=== PATIENT | female | born 1935 | race Caucasian/White ===

== ENCOUNTER 2018-05-15 10:12 | Observation (INO) ==
--- NOTE | 2018-05-15 11:07 | DR.NAUSEAF ---
HPI Time Seen Time Seen by Provider: 05/15/18 10:44 Primary Care Physician Primary Care Physician: JOSE Complaints Chief Complaint:: PATIENT HAS BEEN SICK FOR THE LAST WEEK. SHE WENT TO THE CLINIC FRIDAY AND WAS SEEN FOR THE DIZZINESS. SHE HAS NOT GOTTEN ANY BETTER AND HAS BEEN VOMITING EVERYDAY. FAMILY STATED THAT SHE WAS GIVEN A SHOT AT THE [facility] THAT HELPED OUT FOR ABOUT A DAY. Source History Provided: Patient Mode of Arrival Mode of Arrival: Ambulatory Timing Onset of Chief Complaint: 05/08/18 PMH PMH Past Medical History: Yes Past Medical History: Hypertension Past Surgical History: No Family History History of Family Medical Conditions: No Social History Does patient currently use any type of tobacco product: No Have you used tobacco products in the last 12 months: No Type of Tobacco Use: None Alcohol Use: None and Occasionally Do you use any recreational Drugs:: No Lives With: Family Lives Where: Home infectious screening In the last 2 months have you had wt loss of >10#?: NO Have you had fever, night sweats or hemotysis?: No Have you traveled outside the country in the last 6 months?: No Isolation: Standard PE Vital Signs Vitals: Temperature 97.7 F Pulse Rate 55 Respiratory Rate 20 Blood Pressure 185/81 O2 Sat by Pulse Oximetry 100 ROR Labs Reviewed Result Diagrams: 05/15/18 11:14 05/15/18 11:14 Laboratory: WBC 7.0 X10^3/uL (3.6-10.0) 05/15/18 11:14 RBC 4.80 X10^6/uL (3.5-5.4) 05/15/18 11:14 Hgb 14.4 g/dL (12.0-16.0) 05/15/18 11:14 Hct 42.9 % (36.0-47.0) 05/15/18 11:14 MCV 89.4 fL (80.0-100.0) 05/15/18 11:14 MCH 30.0 pg (27.0-34.0) 05/15/18 11:14 MCHC 33.6 g/dL (33.0-35.0) 05/15/18 11:14 RDW 13.7 % (11.6-16.5) 05/15/18 11:14 Plt Count 184 X10^3/uL (150.0-450.0) 05/15/18 11:14 MPV 9.8 fL (7.4-11.0) 05/15/18 11:14 Neut % (Auto) 74.4 % (42.0-75.0) 05/15/18 11:14 Lymph % (Auto) 15.3 % (21.0-51.0) L 05/15/18 11:14 [place] % (Auto) 8.6 % (0.0-13.0) 05/15/18 11:14 Eos % (Auto) 1.0 % (0.9-2.9) 05/15/18 11:14 Baso % (Auto) 0.7 % (0.2-1.0) 05/15/18 11:14 Neut # (Auto) 5.2 x10^3/uL (2.2-4.8) H 05/15/18 11:14 Lymph # (Auto) 1.1 X10^3/uL (1.3-2.9) L 05/15/18 11:14 [place] # (Auto) 0.6 x10^3/uL (0.3-0.8) 05/15/18 11:14 Eos # (Auto) 0.1 x10^3/uL (0.0-0.2) 05/15/18 11:14 Baso # (Auto) 0.0 X10^3/uL (0.0-0.1) 05/15/18 11:14 Absolute Nucleated RBC 0.0 /100WBC 05/15/18 11:14 Sodium 140 mmol/L (136-145) 05/15/18 11:14 Corrected Sodium TNP 05/15/18 11:14 Potassium 4.0 mmol/L (3.5-5.1) 05/15/18 11:14 Chloride 101 mmol/L (98-107) 05/15/18 11:14 Carbon Dioxide 30.7 mmol/L (21-32) 05/15/18 11:14 BUN 26 mg/dL (7-18) H 05/15/18 11:14 Creatinine 1.50 mg/dL (0.55-1.02) H 05/15/18 11:14 Est GFR (MDRD) Af Amer 43 (>60) L 05/15/18 11:14 Est GFR (MDRD) Non-Af 35 (>60) L 05/15/18 11:14 Glucose 95 mg/dL (65-99) 05/15/18 11:14 Calcium 9.9 mg/dL (8.5-10.1) 05/15/18 11:14 Corrected Calcium TNP 05/15/18 11:14 Total Bilirubin 1.30 mg/dL (0.2-1.0) H 05/15/18 11:14 AST 33 Units/L (15-37) 05/15/18 11:14 ALT 25 Units/L (12-78) 05/15/18 11:14 Alkaline Phosphatase 85 Units/L (46-116) 05/15/18 11:14 Creatine Kinase 31 Units/L (26-192) 05/15/18 11:14 CK-MB (CK-2) < 1.0 ng/mL (0-4.0) 05/15/18 11:14 CK/CKMB % Calc 3.2 % (<4) 05/15/18 11:14 Troponin I < 0.02 ng/mL (0-1.5) 05/15/18 11:14 Total Protein 7.2 g/dL (6.4-8.2) 05/15/18 11:14 Albumin 3.4 g/dL (3.4-5.0) 05/15/18 11:14 Globulin 3.8 g/dL (2.5-4.5) 05/15/18 11:14 Albumin/Globulin Ratio 0.9 Ratio (1.1-2.1) L 05/15/18 11:14 Specimen Type Clean catch urine 05/15/18 11:00 Urine Color Yellow (YELLOW) 05/15/18 11:00 Urine Appearance Clear (CLEAR) 05/15/18 11:00 Urine pH 7.0 (5.0 - 8.0) 05/15/18 11:00 Ur Specific [place] 1.010 (1.000-1.030) 05/15/18 11:00 Urine Protein Negative (NEGATIVE) 05/15/18 11:00 Urine Glucose (UA) Negative (NEGATIVE) 05/15/18 11:00 Urine Ketones Negative (NEGATIVE) 05/15/18 11:00 Urine Occult Blood 1+ (NEGATIVE) 05/15/18 11:00 Urine Nitrite Negative (NEGATIVE) 05/15/18 11:00 Urine Bilirubin Negative (NEGATIVE) 05/15/18 11:00 Urine Urobilinogen Normal (NORMAL) 05/15/18 11:00 Ur Leukocyte Esterase 1+ (NEGATIVE) 05/15/18 11:00
[2018-05-15 11:21] LABS: BASOPHILS % (AUTO) 0.7 % (0.2-1.0); EOSINOPHILS # (AUTO) 0.1 x10^3/uL (0.0-0.2); HEMATOCRIT 42.9 % (36.0-47.0); HEMOGLOBIN 14.4 g/dL (12.0-16.0); LYMPHOCYTES # (AUTO) 1.1 X10^3/uL (1.3-2.9); LYMPHOCYTES % (AUTO) 15.3 % (21.0-51.0); MEAN CORPUSCULAR HGB CONC 33.6 g/dL (33.0-35.0); MEAN CORPUSCULAR VOLUME 89.4 fL (80.0-100.0); MEAN PLATELET VOLUME 9.8 fL (7.4-11.0); MONOCYTES # (AUTO) 0.6 x10^3/uL (0.3-0.8); MONOCYTES % (AUTO) 8.6 % (0.0-13.0); NEUTROPHILS # (AUTO) 5.2 x10^3/uL (2.2-4.8); NEUTROPHILS % (AUTO) 74.4 % (42.0-75.0); PLATELET COUNT 184 X10^3/uL (150.0-450.0); RED CELL DISTRIBUTION WIDTH 13.7 % (11.6-16.5)
--- NOTE | 2018-05-15 11:31 | CT ---
HISTORY: Dizziness, vomiting Study: CT brain without contrast Comparison: 04/30/2018 Technique: Multiple axial images of the brain were obtained without administration of IV contrast. Dose reduction techniques including Automated Exposure Control (AEC) and adjustment of mA and kV were utilized. Findings: There is cerebral volume loss and nonspecific white matter hypoattenuation likely related to chronic microvascular ischemic changes. No evidence of acute hemorrhage, midline shift, mass effect or abnormal extra-axial fluid collection. The ventricular system is symmetric and nondilated. The soft tissues and osseous structures are unremarkable. The visualized paranasal sinuses are clear. IMPRESSION: 1. Stable exam without acute intracranial abnormality. Reported By:
[2018-05-15 11:43] LABS: BILIRUBIN,URINE NEGATIVE (NEGATIVE); BLOOD/HEMOGLOBIN,URINE 1+ (NEGATIVE); GLUCOSE, URINE NEGATIVE (NEGATIVE); KETONES,URINE NEGATIVE (NEGATIVE); LEUKOCYTE ESTERASE ,URINE 1+ (NEGATIVE); NITRITES,URINE NEGATIVE (NEGATIVE); PROTEIN,URINE NEGATIVE (NEGATIVE); UROBILINOGEN,URINE NORMAL (NORMAL)
[2018-05-15 11:46] LABS: BLOOD UREA NITROGEN 26 mg/dL (7-18); CALCIUM 9.9 mg/dL (8.5-10.1); CARBON DIOXIDE 30.7 mmol/L (21-32); CHLORIDE 101 mmol/L (98-107); SODIUM 140 mmol/L (136-145); TROPONIN I < 0.02 ng/mL (0-1.5); eGFR NON BLACK RACES 35 (>60)
[2018-05-15 11:51] LABS: ALANINE AMINOTRANSFERASE 25 Units/L (12-78); ALBUMIN 3.4 g/dL (3.4-5.0); ALKALINE PHOSPHATASE 85 Units/L (46-116); ASPARTATE AMINO TRANSFERASE 33 Units/L (15-37); CKMB % 3.2 % (<4); CREATINE KINASE 31 Units/L (26-192); CREATINE KINASE MB < 1.0 ng/mL (0-4.0); TOTAL PROTEIN 7.2 g/dL (6.4-8.2)
[2018-05-15 11:51] LABS: APPEARANCE,URINE CLEAR (CLEAR); COLOR,URINE YELLOW (YELLOW)
[2018-05-15] MEDS ORDERED: NS 1000 ML 1,000 ML ONE (14:32)
[2018-05-15] MEDS: NS 1000 ML 1,000 ML IV SCH (14:46)
[2018-05-15 17:25] VITALS: BMI 26.3
[2018-05-15 18:17] LABS: CREATINE KINASE 37 Units/L (26-192); CREATINE KINASE MB < 1.0 ng/mL (0-4.0); TROPONIN I < 0.02 ng/mL (0-1.5)
[2018-05-15 18:34] LABS: CKMB % 2.7 % (<4)
[2018-05-16 00:40] LABS: BILIRUBIN,URINE NEGATIVE (NEGATIVE); BLOOD/HEMOGLOBIN,URINE 1+ (NEGATIVE); GLUCOSE, URINE NEGATIVE (NEGATIVE); KETONES,URINE NEGATIVE (NEGATIVE); LEUKOCYTE ESTERASE ,URINE 1+ (NEGATIVE); NITRITES,URINE NEGATIVE (NEGATIVE); PROTEIN,URINE NEGATIVE (NEGATIVE); UROBILINOGEN,URINE NORMAL (NORMAL)
[2018-05-16 00:46] LABS: APPEARANCE,URINE CLEAR (CLEAR); COLOR,URINE YELLOW (YELLOW)
[2018-05-16 00:47] LABS: BACTERIA,URINE 1+ /HPF (NEGATIVE); SQUAMOUS EPITHELIAL CELL,UR FEW /HPF (NEGATIVE)
[2018-05-16 00:53] LABS: CKMB % 3.7 % (<4); CREATINE KINASE 27 Units/L (26-192); CREATINE KINASE MB < 1.0 ng/mL (0-4.0); TROPONIN I < 0.02 ng/mL (0-1.5)
[2018-05-16] MEDS: NS 1000 ML 1,000 ML IV SCH ×3 (04:00→17:36)
[2018-05-16 05:57] LABS: BASOPHILS % (AUTO) 0.6 % (0.2-1.0); EOSINOPHILS # (AUTO) 0.2 x10^3/uL (0.0-0.2); EOSINOPHILS % (AUTO) 3.5 % (0.9-2.9); HEMATOCRIT 39.9 % (36.0-47.0); HEMOGLOBIN 13.3 g/dL (12.0-16.0); LYMPHOCYTES # (AUTO) 2.2 X10^3/uL (1.3-2.9); LYMPHOCYTES % (AUTO) 33.4 % (21.0-51.0); MEAN CORPUSCULAR HEMOGLOBIN 29.9 pg (27.0-34.0); MEAN CORPUSCULAR HGB CONC 33.2 g/dL (33.0-35.0); MEAN CORPUSCULAR VOLUME 89.9 fL (80.0-100.0); MEAN PLATELET VOLUME 9.9 fL (7.4-11.0); MONOCYTES # (AUTO) 0.8 x10^3/uL (0.3-0.8); MONOCYTES % (AUTO) 12.2 % (0.0-13.0); NEUTROPHILS # (AUTO) 3.3 x10^3/uL (2.2-4.8); NEUTROPHILS % (AUTO) 50.3 % (42.0-75.0); PLATELET COUNT 176 X10^3/uL (150.0-450.0); RED BLOOD COUNT 4.44 X10^6/uL (3.5-5.4); RED CELL DISTRIBUTION WIDTH 13.8 % (11.6-16.5); WHITE BLOOD COUNT 6.6 X10^3/uL (3.6-10.0)
[2018-05-16 06:11] LABS: ALANINE AMINOTRANSFERASE 24 Units/L (12-78); ALKALINE PHOSPHATASE 75 Units/L (46-116); ASPARTATE AMINO TRANSFERASE 25 Units/L (15-37); BLOOD UREA NITROGEN 21 mg/dL (7-18); CALCIUM 9.1 mg/dL (8.5-10.1); CARBON DIOXIDE 27.5 mmol/L (21-32); CHLORIDE 106 mmol/L (98-107); COR CA(FOR HYPOALB) 9.9 mg/dL (8.5-10.1); CREATININE 1.37 mg/dL (0.55-1.02); MAGNESIUM 1.8 mg/dL (1.7-2.9); SODIUM 142 mmol/L (136-145); TOTAL PROTEIN 6.3 g/dL (6.4-8.2); eGFR NON BLACK RACES 39 (>60)
[2018-05-16] MEDS ORDERED: ANTIVERT TAB 25 MG PO ONE (06:57)
--- NOTE | 2018-05-16 08:39 | RAD ---
Examination: Chest, PA and lateral views History: Dizzy, dyspnea Findings: Normal heart size with no acute pulmonary, hilar or pleural lesion. Impression: No acute or significant chest abnormality demonstrated. Reported By:
[2018-05-16] MEDS ORDERED: NS 250 ML IV 250 ML IV ONE (09:32)
[2018-05-16 09:42] LABS: AMYLASE 61 Units/L (25-115); LIPASE 400 Units/L (73-393)
[2018-05-16] MEDS: PROTONIX INJ 40 MG VIAL IVP SCH (10:20)
--- NOTE | 2018-05-16 14:35 | DR.H&P ---
H&P - History & Physical for Day of: H&P Date: 05/15/18 - Chief Complaint Chief Complaint: DIZZINESS, NV - History of Present Illness History of Present Illness: 82 WF ER ADMISSION AFTER PRESENTING WITH FAMILY, REPORTS SICK ALL WEEK WITH SEVERE DIZZINESS AND N/V. PT'S FAMILY REPORTS SHE HAS BEEN VERY AND AND INCREASED CONFUSION AND SHE HAD BEEN VOMITING EVERY DAY. PT DENIES DIARRHEA OR BLOOD IN STOOL, DENIES CHEST PAIN BUT HAS MILD COOLEY. PT HAS PMH OF HYPERLIPIDEMIA AND HTN. PT ADMITTED FOR EVALUATION OF ACUTE ILLNESS. - Past Medical History Past Medical History: Hypertension - Past Surgical History Surgical History: Hysterectomy, Other - Family History Family Medical History: Diabetes Mellitus - Social History Does patient currently use any type of tobacco product: No Have you used tobacco products in the last 12 months: No Type of Tobacco Use: None Does any household member use tobacco: No Alcohol Use: None Drug Use: None - Medications Home Medications: No Known Drug Allergies Allergy (Verified 05/15/18 10:13) CONTINUE taking the following medications atorvastatin 10 mg PO QDAY 05/15/18 [History] bisoprolol-hydrochlorothiazide 1 tab PO QDAY 05/15/18 [History] lisinopril 40 mg PO HS 05/15/18 [History] meclizine 1 tab PO Q8H PRN 05/15/18 [History] ondansetron HCl [Zofran] 4 - 8 mg PO TID PRN 05/15/18 [History] - Review of Systems Constitutional: Chills, Weakness Eyes: No Symptoms Reported ENT: No Symptoms Reported Respiratory: SOB with Excertion Cardiovascular: Light Headedness Gastrointestinal: Nausea, Vomiting Genitourinary: No Symptoms Reported Musculoskeletal: No Symptoms Reported Skin: No Symptoms Reported Neurological: Weakness, Confusion, Other (DIZZINESS) - Physical Exam Vital Signs: Temperature 97.8 F Pulse Rate [Right Brachial] 56 Pulse Rate 55 Respiratory Rate 20 Blood Pressure [Right Arm] 182/73 Blood Pressure [Left Arm] 160/93 Blood Pressure 185/81 O2 Sat by Pulse Oximetry 97 Oriented: Person Eyes: Normal Ear: Normal Nose: Normal Throat: Normal Respiratory: RLL Diminished, LLL Diminished Cardiovascular: Normal. negative: Murmur, Edema : Normal Auscultation: Bowel Sounds: Normal Palpation: Normal Tenderness: RUQ, Epigastric, Mild Skin: Decreased Turgur Musculoskeletal: Normal Psychiatric: Anxiety Affect: Anxious Speech Pattern: Clear, Appropriate - Assessment/Plan (1) Dizziness Status: Acute Plan: CT HEAD ON ADMISSION. ADMIT, SERIAL CE AND EKG. BP MONITORING. ADMISSION CBC CMP. GENTLE IV HYDRATION, I & OS (2) Abdominal pain Status: Acute (3) Hypertension Status: Acute (4) Weakness Status: Acute (5) Acute renal insufficiency Status: Acute - Allergies Allergies/Adverse Reactions: Allergies Allergy/AdvReac Type Severity Reaction Status Date / Time No Known Drug Allergies Allergy Verified 05/15/18 10:13
--- NOTE | 2018-05-16 14:39 | PCM.PROG ---
Progress Note - Progress Note for Day of Date of Exam: 05/16/18 - Subjective Subjective: 82 WF ER ADMISSION WITH WEAKNESS, ACUTE RENAL INSUFFICIENCY, N/V AND CONFUSION PER FAMILY. PT HAD CT HEAD ON ADMISSION W/O ACUTE FINDINGS. PT RENAL FUNCTION SLIGHTLY IMPROVED THIS AM. PT CO NAUSEA NO CHEST PAIN. PT HAD ELEVATED LIPASE, ORDERED CTA OF CAROTIDS NOT PREFORMED DUE TO GFR, PER RADIOLOGY. PT HAS CT ABD PELVIS W/O ORDERED AND PROTONIX DAILY, WITH ENCOURAGE ORAL HYDRATION. - Past Medical Family Social History Past Med/Fam/Surg Hx: No changes since H&P Allergies: Allergies No Known Drug Allergies Allergy (Verified 05/15/18 10:13) - Review of Systems ROS: No change since H&P - Vital Signs and I&O's Vital Signs: Temperature 97.8 F Pulse Rate [Right Brachial] 56 Pulse Rate 55 Respiratory Rate 20 Blood Pressure [Right Arm] 182/73 Blood Pressure [Left Arm] 160/93 Blood Pressure 185/81 O2 Sat by Pulse Oximetry 97 Intake and Output: Intake & Output 05/14/18 05/15/18 05/16/18 05/17/18 11:59 11:59 11:59 11:59 Intake Total 1155 / 1155 Balance 1155 / 1155 - Physical Exam Oriented: Person Eyes: Normal Ear: Normal Nose: Normal Throat: Normal Respiratory: Diminished Cardiovascular: Normal. negative: Murmur, Edema : Normal Auscultation: Bowel Sounds: Normal Tenderness: RUQ, Epigastric, Mild Skin: Decreased Turgur Musculoskeletal: Normal Psychiatric: Anxiety Affect: Anxious Speech Pattern: Clear, Appropriate - Laboratory and Diagnostics Result Diagrams: 05/16/18 05:13 05/16/18 05:13 Labs: Laboratory WBC 6.6 X10^3/uL (3.6-10.0) 05/16/18 05:13 RBC 4.44 X10^6/uL (3.5-5.4) 05/16/18 05:13 Hgb 13.3 g/dL (12.0-16.0) 05/16/18 05:13 Hct 39.9 % (36.0-47.0) 05/16/18 05:13 MCV 89.9 fL (80.0-100.0) 05/16/18 05:13 MCH 29.9 pg (27.0-34.0) 05/16/18 05:13 MCHC 33.2 g/dL (33.0-35.0) 05/16/18 05:13 RDW 13.8 % (11.6-16.5) 05/16/18 05:13 Plt Count 176 X10^3/uL (150.0-450.0) 05/16/18 05:13 MPV 9.9 fL (7.4-11.0) 05/16/18 05:13 Neut % (Auto) 50.3 % (42.0-75.0) 05/16/18 05:13 Lymph % (Auto) 33.4 % (21.0-51.0) 05/16/18 05:13 [place] % (Auto) 12.2 % (0.0-13.0) 05/16/18 05:13 Eos % (Auto) 3.5 % (0.9-2.9) H 05/16/18 05:13 Baso % (Auto) 0.6 % (0.2-1.0) 05/16/18 05:13 Neut # (Auto) 3.3 x10^3/uL (2.2-4.8) 05/16/18 05:13 Lymph # (Auto) 2.2 X10^3/uL (1.3-2.9) 05/16/18 05:13 [place] # (Auto) 0.8 x10^3/uL (0.3-0.8) 05/16/18 05:13 Eos # (Auto) 0.2 x10^3/uL (0.0-0.2) 05/16/18 05:13 Baso # (Auto) 0.0 X10^3/uL (0.0-0.1) 05/16/18 05:13 Absolute Nucleated RBC 0.0 /100WBC 05/16/18 05:13 D-Dimer 116 ng/mL (0-400) 05/16/18 05:13 Sodium 142 mmol/L (136-145) 05/16/18 05:13 Corrected Sodium TNP 05/16/18 05:13 Potassium 4.3 mmol/L (3.5-5.1) 05/16/18 05:13 Chloride 106 mmol/L (98-107) 05/16/18 05:13 Carbon Dioxide 27.5 mmol/L (21-32) 05/16/18 05:13 BUN 21 mg/dL (7-18) H 05/16/18 05:13 Creatinine 1.37 mg/dL (0.55-1.02) H 05/16/18 05:13 Est GFR (MDRD) Af Amer 47 (>60) L 05/16/18 05:13 Est GFR (MDRD) Non-Af 39 (>60) L 05/16/18 05:13 Glucose 83 mg/dL (65-99) 05/16/18 05:13 Calcium 9.1 mg/dL (8.5-10.1) 05/16/18 05:13 Corrected Calcium 9.9 mg/dL (8.5-10.1) 05/16/18 05:13 Magnesium 1.8 mg/dL (1.7-2.9) 05/16/18 05:13 Total Bilirubin 0.90 mg/dL (0.2-1.0) 05/16/18 05:13 AST 25 Units/L (15-37) 05/16/18 05:13 ALT 24 Units/L (12-78) 05/16/18 05:13 Alkaline Phosphatase 75 Units/L (46-116) 05/16/18 05:13 Creatine Kinase 27 Units/L (26-192) 05/16/18 00:13 CK-MB (CK-2) < 1.0 ng/mL (0-4.0) 05/16/18 00:13 CK/CKMB % Calc 3.7 % (<4) 05/16/18 00:13 Troponin I < 0.02 ng/mL (0-1.5) 05/16/18 00:13 Total Protein 6.3 g/dL (6.4-8.2) L 05/16/18 05:13 Albumin 3.0 g/dL (3.4-5.0) L 05/16/18 05:13 Globulin 3.3 g/dL (2.5-4.5) 05/16/18 05:13 Albumin/Globulin Ratio 0.9 Ratio (1.1-2.1) L 05/16/18 05:13 Amylase 61 Units/L (25-115) 05/16/18 05:13 Lipase 400 Units/L (73-393) H 05/16/18 05:13 Specimen Type Clean catch urine 05/15/18 23:51 Urine Color Yellow (YELLOW) 05/15/18 23:51 Urine Appearance Clear (CLEAR) 05/15/18 23:51 Urine pH 5.0 (5.0 - 8.0) 05/15/18 23:51 Ur Specific [place] 1.010 (1.000-1.030) 05/15/18 23:51 Urine Protein Negative (NEGATIVE) 05/15/18 23:51 Urine Glucose (UA) Negative (NEGATIVE) 05/15/18 23:51 Urine Ketones Negative (NEGATIVE) 05/15/18 23:51 Urine Occult Blood 1+ (NEGATIVE) 05/15/18 23:51 Urine Nitrite Negative (NEGATIVE) 05/15/18 23:51 Urine Bilirubin Negative (NEGATIVE) 05/15/18 23:51 Urine Urobilinogen Normal (NORMAL) 05/15/18 23:51 Ur Leukocyte Esterase 1+ (NEGATIVE) 05/15/18 23:51 Urine RBC 3-5 /HPF (NONE SEEN) 05/15/18 23:51 Urine WBC 0-2 /HPF (NONE SEEN) 05/15/18 23:51 Ur Squamous Epith Cells Few /HPF (NEGATIVE) 05/15/18 23:51 Urine Bacteria 1+ /HPF (NEGATIVE) 05/15/18 23:51 Ur Culture Indicated? No/not indicated 05/15/18 23:51 - Plan (1) Dizziness Status: Acute Plan: CT HEAD ON ADMISSION. CTA CAROTIDS, BP AND LIPID CONTROL. SERIAL CE AND EKG REVIEWED WITH PT AND SISTER PRESENT THIS AM. BP MONITORING. AM CBC CMP, REPEAT AMYLASE AND LIPASE. GENTLE IV HYDRATION, I & OS (2) Abdominal pain Status: Acute Plan: REPEAT AMYLASE AND LIPASE. CT ABD PELVIS (3) Hypertension Status: Acute (4) Weakness Status: Acute (5) Acute renal insufficiency Status: Acute
--- NOTE | 2018-05-16 15:57 | CT ---
HISTORY: Abdominal pain, nausea, vomiting Study: CT abdomen and pelvis without contrast Comparison: None Technique: Multiple axial images of the abdomen and pelvis were obtained from the lung bases to the pubic symphysis without the administration of IV contrast. Findings: Subsegmental atelectasis and/or scarring are seen within the visualized lungs. Calcifications are seen within the periphery of the inferior right hepatic lobe. The spleen, pancreas, adrenals, and left kidney are grossly unremarkable in appearance given the limitations of this noncontrast exam. A right renal cyst is noted. No CT evidence of hydronephrosis is identified. Evaluation of the stomach, small bowel, and colon is limited without oral contrast. A moderate-size hiatal hernia is noted. The urinary bladder is unremarkable. Degenerative changes are seen within the visualized spine. IMPRESSION: Moderate-sized hiatal hernia. Right renal cyst. Other findings as noted above. Reported By:
[2018-05-16] MEDS ORDERED: COZAAR ONE (16:14)
[2018-05-16] MEDS: COZAAR PO SCH (16:16)
[2018-05-16] MEDS ORDERED: COLACE CAP 100 MG PO SCH (21:00)
[2018-05-17] MEDS ORDERED: RESTORIL CAP 15 MG PO PRN (00:46)
[2018-05-17] MEDS ORDERED: RESTORIL CAP 15 MG PO ONE (00:49)
[2018-05-17] MEDS: NS 1000 ML 1,000 ML IV SCH (05:03)
[2018-05-17 05:17] LABS: BASOPHILS % (AUTO) 0.7 % (0.2-1.0); EOSINOPHILS # (AUTO) 0.2 x10^3/uL (0.0-0.2); EOSINOPHILS % (AUTO) 4.1 % (0.9-2.9); HEMATOCRIT 36.2 % (36.0-47.0); HEMOGLOBIN 11.9 g/dL (12.0-16.0); LYMPHOCYTES % (AUTO) 33.5 % (21.0-51.0); MEAN CORPUSCULAR HEMOGLOBIN 29.7 pg (27.0-34.0); MEAN CORPUSCULAR HGB CONC 32.9 g/dL (33.0-35.0); MEAN CORPUSCULAR VOLUME 90.4 fL (80.0-100.0); MEAN PLATELET VOLUME 9.9 fL (7.4-11.0); MONOCYTES # (AUTO) 0.7 x10^3/uL (0.3-0.8); NEUTROPHILS # (AUTO) 2.9 x10^3/uL (2.2-4.8); NEUTROPHILS % (AUTO) 49.7 % (42.0-75.0); PLATELET COUNT 154 X10^3/uL (150.0-450.0); RED BLOOD COUNT 4.01 X10^6/uL (3.5-5.4); WHITE BLOOD COUNT 5.8 X10^3/uL (3.6-10.0)
[2018-05-17 05:25] LABS: ALANINE AMINOTRANSFERASE 19 Units/L (12-78); ALBUMIN 2.7 g/dL (3.4-5.0); ALKALINE PHOSPHATASE 69 Units/L (46-116); ASPARTATE AMINO TRANSFERASE 23 Units/L (15-37); BLOOD UREA NITROGEN 15 mg/dL (7-18); CALCIUM 8.8 mg/dL (8.5-10.1); CARBON DIOXIDE 24.8 mmol/L (21-32); CHLORIDE 108 mmol/L (98-107); COR CA(FOR HYPOALB) 9.8 mg/dL (8.5-10.1); CREATININE 1.18 mg/dL (0.55-1.02); SODIUM 142 mmol/L (136-145); TOTAL PROTEIN 5.7 g/dL (6.4-8.2); eGFR NON BLACK RACES 46 (>60)
[2018-05-17 06:14] LABS: AMYLASE 53 Units/L (25-115); LIPASE 318 Units/L (73-393)
[2018-05-17] MEDS: COZAAR PO SCH (09:46)
[2018-05-17] MEDS: PROTONIX INJ 40 MG VIAL IVP SCH (09:46)
[2018-05-17 12:23] VITALS: BP 173/75
[2018-05-17] MEDS ORDERED: NORVASC TAB 5 MG PO ONE (13:59)
== END 2018-05-17 15:05 | disposition home or self-care (01) ==
LOC: MED/SURG 10:12 → ER 10:12 → MED/SURG 14:26
PROVIDERS: ADMIT Internal Medicine; ATTEND Internal Medicine
DX: R53.1 Weakness; R42 Dizziness and giddiness; K21.9 Gastro-esophageal reflux disease without esophagitis; I10 Essential (primary) hypertension; K44.9 Diaphragmatic hernia without obstruction or gangrene; F01.50 Vascular dementia, unspecified severity, without behavioral disturbance, psychotic disturbance, mood disturbance, and anxiety; N28.9 Disorder of kidney and ureter, unspecified; E78.2 Mixed hyperlipidemia; Z79.899 Other long term (current) drug therapy; R94.4 Abnormal results of kidney function studies; E86.0 Dehydration; N28.1 Cyst of kidney, acquired; R11.2 Nausea with vomiting, unspecified
CPT/HCPCS: 36415; 70450; 71020; 71046; 74176; 80053; 81001; 81003; 82150; 82550; 82553; 83690; 83735; 84484; 85025; 85378; 93005; 94760; 96365; 96367; 96374; 99282; 99284; A4222; C9113; G0378; J7030; J7050

== ENCOUNTER 2022-04-13 14:13 | Observation (INO) ==
[2022-04-13] MEDS ORDERED: ROCEPHIN 1 GRAM IV PREMIX 1 G/50 ML IV.SOLN. IV SCH (15:00)
[2022-04-13 15:49] VITALS: BMI 22.6
[2022-04-13] MEDS: NS 1,000 ML IV 1,000 ML IV SCH (16:01)
[2022-04-13] MEDS: ZESTRIL TAB 10 MG PO SCH (16:02)
--- NOTE | 2022-04-13 16:05 | RAD ---
EXAM: CHEST X-RAYHISTORY: Fall injury. Weakness.TECHNIQUE: AP CXR.COMPARISON: None available.FINDINGS:The heart size and mediastinum are within normal limits. The lung dominguez and costophrenic angles are clear. There is no acute parenchymal infiltrate, pleural effusion, or pneumothorax seen. The visualized bony structures are within normal limits.IMPRESSION:1. No evidence for acute cardiopulmonary disease seen.Electronically signed by: Kinga Brown (Apr 13, 2022 16:03:55)
[2022-04-13] MEDS ORDERED: ROCEPHIN VIAL 1 GRAM IV SCH (16:15)
[2022-04-13] MEDS: ROCEPHIN VIAL 1 GRAM 1 G in NS 100 ML IV 100 ML IV SCH (17:11)
[2022-04-13] MEDS ORDERED: TAPAZOLE ONE (20:03)
[2022-04-13] MEDS: TAPAZOLE PO SCH (20:52)
[2022-04-13] MEDS: MELATONIN PO PRN (20:52)
[2022-04-13] MEDS ORDERED: SEROquel TAB 25 mg PO SCH (21:00)
[2022-04-14 06:10] LABS: BASOPHILS % (AUTO) 0.5 % (0.2-1.0); EOSINOPHILS # (AUTO) 0.2 x10^3/uL (0.0-0.2); EOSINOPHILS % (AUTO) 2.7 % (0.9-2.9); HEMATOCRIT 38.2 % (36.0-47.0); HEMOGLOBIN 12.9 g/dL (12.0-16.0); LYMPHOCYTES # (AUTO) 1.4 X10^3/uL (1.3-2.9); LYMPHOCYTES % (AUTO) 24.4 % (21.0-51.0); MEAN CORPUSCULAR HEMOGLOBIN 29.9 pg (27.0-34.0); MEAN CORPUSCULAR HGB CONC 33.8 g/dL (33.0-35.0); MEAN CORPUSCULAR VOLUME 88.3 fL (80.0-100.0); MEAN PLATELET VOLUME 8.8 fL (7.4-11.0); MONOCYTES # (AUTO) 0.7 x10^3/uL (0.3-0.8); NEUTROPHILS # (AUTO) 3.4 x10^3/uL (2.2-4.8); NEUTROPHILS % (AUTO) 60.4 % (42.0-75.0); RED BLOOD COUNT 4.33 X10^6/uL (3.5-5.4); RED CELL DISTRIBUTION WIDTH 13.7 % (11.6-16.5); WHITE BLOOD COUNT 5.6 X10^3/uL (3.6-10.0)
[2022-04-14 07:05] LABS: ALANINE AMINOTRANSFERASE 10 Units/L (12-78); ALBUMIN 2.7 g/dL (3.4-5.0); ALKALINE PHOSPHATASE 101 Units/L (46-116); ASPARTATE AMINO TRANSFERASE 24 Units/L (15-37); BLOOD UREA NITROGEN 10 mg/dL (7-18); CALCIUM 8.5 mg/dL (8.5-10.1); CARBON DIOXIDE 30.3 mmol/L (21-32); CHLORIDE 104 mmol/L (98-107); COR CA(FOR HYPOALB) 9.5 mg/dL (8.5-10.1); CREATININE 1.15 mg/dL (0.55-1.02); SODIUM 141 mmol/L (136-145); eGFR NON BLACK RACES 47 (>60)
[2022-04-14] MEDS: CYMBALTA PO SCH (08:15)
[2022-04-14] MEDS: ZESTRIL TAB 10 MG PO SCH (08:15)
[2022-04-14] MEDS: ROCEPHIN VIAL 1 GRAM 1 G in NS 100 ML IV 100 ML IV SCH (08:15)
[2022-04-14] MEDS: SEROquel TAB 25 mg PO SCH ×2 (09:29→21:05)
[2022-04-14] MEDS: NS 1,000 ML IV 1,000 ML IV SCH (18:30)
[2022-04-14] MEDS ORDERED: TAPAZOLE ONE (20:01)
[2022-04-14] MEDS: TAPAZOLE PO SCH (21:04)
[2022-04-14] MEDS: MELATONIN PO PRN (21:04)
[2022-04-15 05:20] LABS: BASOPHILS % (AUTO) 0.5 % (0.2-1.0); EOSINOPHILS # (AUTO) 0.2 x10^3/uL (0.0-0.2); EOSINOPHILS % (AUTO) 3.7 % (0.9-2.9); HEMATOCRIT 40.5 % (36.0-47.0); HEMOGLOBIN 13.4 g/dL (12.0-16.0); LYMPHOCYTES # (AUTO) 1.4 X10^3/uL (1.3-2.9); MEAN CORPUSCULAR HEMOGLOBIN 29.6 pg (27.0-34.0); MEAN CORPUSCULAR HGB CONC 33.2 g/dL (33.0-35.0); MEAN CORPUSCULAR VOLUME 89.2 fL (80.0-100.0); MEAN PLATELET VOLUME 9.2 fL (7.4-11.0); MONOCYTES # (AUTO) 0.6 x10^3/uL (0.3-0.8); MONOCYTES % (AUTO) 10.9 % (0.0-13.0); NEUTROPHILS # (AUTO) 3.4 x10^3/uL (2.2-4.8); NEUTROPHILS % (AUTO) 59.9 % (42.0-75.0); RED BLOOD COUNT 4.54 X10^6/uL (3.5-5.4); RED CELL DISTRIBUTION WIDTH 13.8 % (11.6-16.5); WHITE BLOOD COUNT 5.7 X10^3/uL (3.6-10.0)
[2022-04-15 05:36] LABS: ALANINE AMINOTRANSFERASE 10 Units/L (12-78); ALKALINE PHOSPHATASE 104 Units/L (46-116); ASPARTATE AMINO TRANSFERASE 23 Units/L (15-37); BLOOD UREA NITROGEN 12 mg/dL (7-18); CALCIUM 8.7 mg/dL (8.5-10.1); CARBON DIOXIDE 29.1 mmol/L (21-32); CHLORIDE 104 mmol/L (98-107); COR CA(FOR HYPOALB) 9.5 mg/dL (8.5-10.1); CREATININE 1.22 mg/dL (0.55-1.02); SODIUM 142 mmol/L (136-145); TOTAL PROTEIN 6.5 g/dL (6.4-8.2); eGFR NON BLACK RACES 44 (>60)
[2022-04-15] MEDS: SEROquel TAB 25 mg PO SCH ×3 (07:56→20:50)
[2022-04-15] MEDS: CYMBALTA PO SCH ×2 (07:56→11:46)
[2022-04-15] MEDS: ZESTRIL TAB 10 MG PO SCH ×3 (07:57→18:00)
[2022-04-15] MEDS: ROCEPHIN VIAL 1 GRAM 1 G in NS 100 ML IV 100 ML IV SCH ×2 (07:57→11:45)
[2022-04-15] MEDS: LOVENOX INJ 40 MG SYR SC SCH (11:48)
--- NOTE | 2022-04-15 13:20 | DR.H&P ---
H&P - History & Physical for Day of: H&P Date: 04/13/22 - Chief Complaint Chief Complaint: fall, weakness, confusion - History of Present Illness History of Present Illness: PT IS 86 WF, ER ADMISSION AFTER PRESENTING WITH FAMILY REPORTS PT HAD FALL EARLY THIS AM. PTS FAMILY REPORTS PT HAS HAD MULTIPLE FALLS RECENTLY WITH INCREASED WEAKNESS AND CONFUSION. PT HAS HAD OVER 10LB WEIGHT LOSS IN THE PAST 3 MONTHS. PT HAS PMH OF HYPERTENSION, THYROID DISEASE AND DEMENTIA WITHOUT PREVIOUS BEHAVIOR DISTURBANCE. PT ADMITTED FOR TREATMENT AND EVALUATION OF ACUTE ILLNESS, WITH PLANS TO SEEK [employer] COMPLIANCE MANAGER SKILLED NURSING PLACEMENT. - Past Medical History Past Medical History: Arthritis, Dementia, Hypertension, Hyperthyroidism - Past Surgical History Surgical History: Hysterectomy - Family History Family Medical History: Diabetes Mellitus, Hypertension - Social History Does patient currently use any type of tobacco product: No Have you used tobacco products in the last 12 months: No Type of Tobacco Use: None Does any household member use tobacco: No Alcohol Use: None Drug Use: None - Medications Home Medications: No Known Drug Allergies Allergy (Verified 05/15/18 10:13) CONTINUE taking the following medications melatonin 5 mg tablet 5 mg PO HS PRN 04/13/22 [History] potassium chloride 20 mEq tablet,extended release(part/cryst) 40 meq PO WEEKLY 04/13/22 [History] - Review of Systems Constitutional: Weakness Eyes: No Symptoms Reported ENT: No Symptoms Reported Respiratory: No Symptoms Reported Cardiovascular: No Symptoms Reported Gastrointestinal: Other (POOR APPETITE, WEIGHT LOSS) Genitourinary: Incontinence Musculoskeletal: No Symptoms Reported Skin: Wound (RIGHT FOREARM) Neurological: Weakness, Confusion - Physical Exam Vital Signs: Temperature 97.2 F Pulse Rate [Right Radial] 82 Respiratory Rate 18 Blood Pressure [Right Arm] 178/78 Blood Pressure [Left Arm] 160/93 Blood Pressure 193/93 O2 Sat by Pulse Oximetry 94 Oriented: Person Eyes: Normal Ear: Normal Nose: Normal Throat: Normal Respiratory: RLL Diminished, LLL Diminished Cardiovascular: Normal. negative: Edema : Normal Auscultation: Bowel Sounds: Normal Palpation: Normal Tenderness: Normal Skin: Decreased Turgur, Wound Musculoskeletal: Right, Left, Motor Deficit Psychiatric: Anxiety, Agitation Mood Description: Anxious Affect: Anxious Speech Pattern: Clear, Inappropriate - Assessment/Plan (1) Altered mental status Status: Acute Plan: ADMIT, UA AND UC COLLECTED ON ER ADMISSION. CT HEAD NEGATIVE FOR ACUTE CVA, OBTAINED ON ER ADMISSION. CONTINUE GENTLE IV HYDRATION, WOUND CARE. FALL RISK, PT EVALUATION. (2) Muscle weakness Status: Acute (3) Urinary tract infection Status: Acute (4) Contusion of forearm, right Status: Acute (5) Hypertension Status: Acute - Allergies Allergies/Adverse Reactions: Allergies Allergy/AdvReac Type Severity Reaction Status Date / Time No Known Drug Allergies Allergy Verified 05/15/18 10:13
--- NOTE | 2022-04-15 17:35 | PCM.PROG ---
Progress Note - Progress Note for Day of Date of Exam: 04/15/22 - Subjective Subjective: PT IS 86 WF, ADMITTED WITH ALTERED MENTAL STATUS AND WEAKNESS. PT HAD NEGATIVE CT HEAD ON ADMISSION. PT HAS PMH OF HYPERTENSION WITH HYPERTENSIVE URGENT BP READINGS TODAY. WE INCREASED HER PO LISINOPRIL AND ADDED PRN CATAPRES .1 PO FOR BP GREATER THAN 160/90. PT HAS HAD SOME AGITATION, CONTROLLED WITH SEROQUEL. URINE CULTURE PENDING. PT IS CURRENTLY ON ROCEPHIN 1GM IV DAILY. PT HAS OVERALL POOR PO INTAKE. CASE MANAGEMENT HAS BEEN CONSULTED FOR NH PLACEMENT. FAMILY AT BEDSIDE THIS MORNING AND AGREES WITH PLAN OF CARE. - Past Medical Family Social History Past Med/Fam/Surg Hx: No changes since H&P Allergies: Allergies No Known Drug Allergies Allergy (Verified 05/15/18 10:13) - Review of Systems ROS: No change since H&P - Vital Signs and I&O's Vital Signs: Temperature 98.2 F Pulse Rate [Right Radial] 74 Respiratory Rate 20 Blood Pressure [Right Arm] 196/81 Blood Pressure [Left Arm] 160/93 Blood Pressure 193/93 O2 Sat by Pulse Oximetry 98 Intake and Output: Intake & Output 04/13/22 04/14/22 04/15/22 04/16/22 11:59 11:59 11:59 11:59 Intake Total 468 / 468 1421 / 1421 40 / 40 Output Total 750 / 750 Balance 468 / 468 671 / 671 40 / 40 - Physical Exam Oriented: Person Eyes: Normal Ear: Normal Nose: Normal Throat: Normal Respiratory: Diminished Cardiovascular: Normal. negative: Edema : Normal Auscultation: Bowel Sounds: Normal Tenderness: Normal Skin: Decreased Turgur, Wound Musculoskeletal: Right, Left, Motor Deficit Psychiatric: Anxiety, Agitation Mood Description: Anxious Affect: Anxious Speech Pattern: Clear, Inappropriate - Laboratory and Diagnostics Result Diagrams: 04/15/22 04:50 04/15/22 04:50 Labs: Laboratory WBC 5.7 X10^3/uL (3.6-10.0) 04/15/22 04:50 RBC 4.54 X10^6/uL (3.5-5.4) 04/15/22 04:50 Hgb 13.4 g/dL (12.0-16.0) 04/15/22 04:50 Hct 40.5 % (36.0-47.0) 04/15/22 04:50 MCV 89.2 fL (80.0-100.0) 04/15/22 04:50 MCH 29.6 pg (27.0-34.0) 04/15/22 04:50 MCHC 33.2 g/dL (33.0-35.0) 04/15/22 04:50 RDW 13.8 % (11.6-16.5) 04/15/22 04:50 Plt Count 243 X10^3/uL (150.0-450.0) 04/15/22 04:50 MPV 9.2 fL (7.4-11.0) 04/15/22 04:50 Neut % (Auto) 59.9 % (42.0-75.0) 04/15/22 04:50 Lymph % (Auto) 25.0 % (21.0-51.0) 04/15/22 04:50 [place] % (Auto) 10.9 % (0.0-13.0) 04/15/22 04:50 Eos % (Auto) 3.7 % (0.9-2.9) H 04/15/22 04:50 Baso % (Auto) 0.5 % (0.2-1.0) 04/15/22 04:50 Neut # (Auto) 3.4 x10^3/uL (2.2-4.8) 04/15/22 04:50 Lymph # (Auto) 1.4 X10^3/uL (1.3-2.9) 04/15/22 04:50 [place] # (Auto) 0.6 x10^3/uL (0.3-0.8) 04/15/22 04:50 Eos # (Auto) 0.2 x10^3/uL (0.0-0.2) 04/15/22 04:50 Baso # (Auto) 0.0 X10^3/uL (0.0-0.1) 04/15/22 04:50 Absolute Nucleated RBC 0.1 /100WBC 04/15/22 04:50 Sodium 142 mmol/L (136-145) 04/15/22 04:50 Corrected Sodium TNP 04/15/22 04:50 Potassium 3.5 mmol/L (3.5-5.1) 04/15/22 04:50 Chloride 104 mmol/L (98-107) 04/15/22 04:50 Carbon Dioxide 29.1 mmol/L (21-32) 04/15/22 04:50 BUN 12 mg/dL (7-18) 04/15/22 04:50 Creatinine 1.22 mg/dL (0.55-1.02) H 04/15/22 04:50 Est GFR (MDRD) Af Amer 54 (>60) L 04/15/22 04:50 Est GFR (MDRD) Non-Af 44 (>60) L 04/15/22 04:50 Glucose 81 mg/dL (65-99) 04/15/22 04:50 Calcium 8.7 mg/dL (8.5-10.1) 04/15/22 04:50 Corrected Calcium 9.5 mg/dL (8.5-10.1) 04/15/22 04:50 Total Bilirubin 0.50 mg/dL (0.2-1.0) 04/15/22 04:50 AST 23 Units/L (15-37) 04/15/22 04:50 ALT 10 Units/L (12-78) L 04/15/22 04:50 Alkaline Phosphatase 104 Units/L (46-116) 04/15/22 04:50 Total Protein 6.5 g/dL (6.4-8.2) 04/15/22 04:50 Albumin 3.0 g/dL (3.4-5.0) L 04/15/22 04:50 Globulin 3.5 g/dL (2.5-4.5) 04/15/22 04:50 Albumin/Globulin Ratio 0.9 Ratio (1.1-2.1) L 04/15/22 04:50 - Plan (1) Altered mental status Status: Acute Plan: UA AND UC COLLECTED ON ER ADMISSION. CT HEAD NEGATIVE FOR ACUTE CVA, OBTAINED ON ER ADMISSION. CONTINUE GENTLE IV HYDRATION, WOUND CARE. FALL RISK, PT EVALUATION. (2) Muscle weakness Status: Acute (3) Urinary tract infection Status: Acute (4) Contusion of forearm, right Status: Acute (5) Hypertension Status: Acute
[2022-04-15] MEDS ORDERED: TAPAZOLE ONE (20:29)
[2022-04-15] MEDS: MELATONIN PO PRN (20:49)
[2022-04-15] MEDS: CATAPRES TAB 0.1 MG PO PRN (20:49)
[2022-04-15] MEDS: TAPAZOLE PO SCH (20:50)
[2022-04-15] MEDS: NS 1,000 ML IV 1,000 ML IV SCH (20:50)
[2022-04-16] MEDS ORDERED: K-DUR TAB 20 MEQ PO PRN (00:50)
[2022-04-16] MEDS ORDERED: MICRO K EXTEN CAP 10 MEQ PO PRN (00:50)
[2022-04-16] MEDS ORDERED: POTASSIUM CHL 60 MEQ/NS 0.45% 500 ML IV PRN (00:50)
[2022-04-16] MEDS ORDERED: KLOR-CON PO PRN (00:50)
[2022-04-16] MEDS ORDERED: POTASSIUM CHLORIDE LIQ 20 MEQ UDC PO PRN (00:50)
[2022-04-16] MEDS ORDERED: K-RIDER 10 MEQ/NS 100 ML 10 MEQ/100 ML BAG IV PRN (00:50)
[2022-04-16] MEDS ORDERED: POTASSIUM CHL 40 MEQ/NS 0.45% 500 ML IV PRN (00:50)
[2022-04-16 06:20] LABS: BASOPHILS % (AUTO) 0.6 % (0.2-1.0); EOSINOPHILS # (AUTO) 0.2 x10^3/uL (0.0-0.2); EOSINOPHILS % (AUTO) 3.7 % (0.9-2.9); HEMATOCRIT 39.2 % (36.0-47.0); HEMOGLOBIN 12.7 g/dL (12.0-16.0); LYMPHOCYTES # (AUTO) 1.7 X10^3/uL (1.3-2.9); LYMPHOCYTES % (AUTO) 28.7 % (21.0-51.0); MEAN CORPUSCULAR HEMOGLOBIN 29.3 pg (27.0-34.0); MEAN CORPUSCULAR HGB CONC 32.3 g/dL (33.0-35.0); MEAN CORPUSCULAR VOLUME 90.7 fL (80.0-100.0); MEAN PLATELET VOLUME 9.2 fL (7.4-11.0); MONOCYTES # (AUTO) 0.7 x10^3/uL (0.3-0.8); MONOCYTES % (AUTO) 11.2 % (0.0-13.0); NEUTROPHILS # (AUTO) 3.3 x10^3/uL (2.2-4.8); NEUTROPHILS % (AUTO) 55.8 % (42.0-75.0); RED BLOOD COUNT 4.32 X10^6/uL (3.5-5.4); RED CELL DISTRIBUTION WIDTH 14.1 % (11.6-16.5)
[2022-04-16 06:32] LABS: ALANINE AMINOTRANSFERASE 11 Units/L (12-78); ALBUMIN 2.7 g/dL (3.4-5.0); ALKALINE PHOSPHATASE 100 Units/L (46-116); ASPARTATE AMINO TRANSFERASE 24 Units/L (15-37); BLOOD UREA NITROGEN 10 mg/dL (7-18); CALCIUM 8.4 mg/dL (8.5-10.1); CARBON DIOXIDE 28.6 mmol/L (21-32); CHLORIDE 105 mmol/L (98-107); COR CA(FOR HYPOALB) 9.4 mg/dL (8.5-10.1); CREATININE 1.15 mg/dL (0.55-1.02); SODIUM 140 mmol/L (136-145); TOTAL PROTEIN 6.1 g/dL (6.4-8.2); eGFR NON BLACK RACES 47 (>60)
[2022-04-16] MEDS: MAGNESIUM SULFATE 1 GRAM/100 mL PREMIX 1 G/100 ML BAG IV PRN ×2 (06:54→09:54)
[2022-04-16] MEDS: ROCEPHIN VIAL 1 GRAM 1 G in NS 100 ML IV 100 ML IV SCH (08:47)
[2022-04-16] MEDS: LOVENOX INJ 40 MG SYR SC SCH (08:48)
[2022-04-16] MEDS: SEROquel TAB 25 mg PO SCH ×2 (08:50→20:06)
[2022-04-16] MEDS: ZESTRIL TAB 10 MG PO SCH (08:50)
[2022-04-16] MEDS: CYMBALTA PO SCH (08:50)
[2022-04-16] MEDS: NS 1,000 ML IV 1,000 ML IV SCH (15:57)
--- NOTE | 2022-04-16 18:18 | PCM.PROG ---
Progress Note - Progress Note for Day of Date of Exam: 04/16/22 - Subjective Subjective: PT IS 86 WF, ADMITTED WITH ALTERED MENTAL STATUS AND WEAKNESS. PT HAD NEGATIVE CT HEAD ON ADMISSION. PT HAS PMH OF HYPERTENSION WITH HYPERTENSIVE URGENT BP READINGS. WE INCREASED HER PO LISINOPRIL AND ADDED PRN CATAPRES .1 PO FOR BP GREATER THAN 160/90. PT HAS HAD SOME AGITATION, CONTROLLED WITH SEROQUEL. URINE CULTURE PENDING. PT IS CURRENTLY ON ROCEPHIN 1GM IV DAILY. PT HAS OVERALL POOR PO INTAKE. CASE MANAGEMENT HAS BEEN CONSULTED FOR NH PLACEMENT. FAMILY AT BEDSIDE THIS MORNING AND AGREES WITH PLAN OF CARE. - Past Medical Family Social History Past Med/Fam/Surg Hx: No changes since H&P Allergies: Allergies No Known Drug Allergies Allergy (Verified 05/15/18 10:13) - Review of Systems ROS: No change since H&P - Vital Signs and I&O's Vital Signs: Temperature 98.0 F Pulse Rate [Right Radial] 64 Respiratory Rate 18 Blood Pressure [Right Arm] 213/98 Blood Pressure [Left Arm] 139/68 Blood Pressure 193/93 O2 Sat by Pulse Oximetry 97 Intake and Output: Intake & Output 04/14/22 04/15/22 04/16/22 04/17/22 11:59 11:59 11:59 11:59 Intake Total 468 / 468 1421 / 1421 758 / 758 240 / 240 Output Total 750 / 750 Balance 468 / 468 671 / 671 758 / 758 240 / 240 - Physical Exam Oriented: Person Eyes: Normal Ear: Normal Nose: Normal Throat: Normal Respiratory: Diminished Cardiovascular: Normal. negative: Edema : Normal Auscultation: Bowel Sounds: Normal Tenderness: Normal Skin: Decreased Turgur, Wound Musculoskeletal: Right, Left, Motor Deficit Psychiatric: Anxiety, Agitation Mood Description: Anxious Affect: Anxious Speech Pattern: Clear, Appropriate - Laboratory and Diagnostics Result Diagrams: 04/16/22 05:58 04/16/22 05:58 Labs: Laboratory WBC 6.0 X10^3/uL (3.6-10.0) 04/16/22 05:58 RBC 4.32 X10^6/uL (3.5-5.4) 04/16/22 05:58 Hgb 12.7 g/dL (12.0-16.0) 04/16/22 05:58 Hct 39.2 % (36.0-47.0) 04/16/22 05:58 MCV 90.7 fL (80.0-100.0) 04/16/22 05:58 MCH 29.3 pg (27.0-34.0) 04/16/22 05:58 MCHC 32.3 g/dL (33.0-35.0) L 04/16/22 05:58 RDW 14.1 % (11.6-16.5) 04/16/22 05:58 Plt Count 221 X10^3/uL (150.0-450.0) 04/16/22 05:58 MPV 9.2 fL (7.4-11.0) 04/16/22 05:58 Neut % (Auto) 55.8 % (42.0-75.0) 04/16/22 05:58 Lymph % (Auto) 28.7 % (21.0-51.0) 04/16/22 05:58 [place] % (Auto) 11.2 % (0.0-13.0) 04/16/22 05:58 Eos % (Auto) 3.7 % (0.9-2.9) H 04/16/22 05:58 Baso % (Auto) 0.6 % (0.2-1.0) 04/16/22 05:58 Neut # (Auto) 3.3 x10^3/uL (2.2-4.8) 04/16/22 05:58 Lymph # (Auto) 1.7 X10^3/uL (1.3-2.9) 04/16/22 05:58 [place] # (Auto) 0.7 x10^3/uL (0.3-0.8) 04/16/22 05:58 Eos # (Auto) 0.2 x10^3/uL (0.0-0.2) 04/16/22 05:58 Baso # (Auto) 0.0 X10^3/uL (0.0-0.1) 04/16/22 05:58 Absolute Nucleated RBC 0.1 /100WBC 04/16/22 05:58 Sodium 140 mmol/L (136-145) 04/16/22 05:58 Corrected Sodium TNP 04/16/22 05:58 Potassium 3.7 mmol/L (3.5-5.1) 04/16/22 05:58 Chloride 105 mmol/L (98-107) 04/16/22 05:58 Carbon Dioxide 28.6 mmol/L (21-32) 04/16/22 05:58 BUN 10 mg/dL (7-18) 04/16/22 05:58 Creatinine 1.15 mg/dL (0.55-1.02) H 04/16/22 05:58 Est GFR (MDRD) Af Amer 57 (>60) L 04/16/22 05:58 Est GFR (MDRD) Non-Af 47 (>60) L 04/16/22 05:58 Glucose 79 mg/dL (65-99) 04/16/22 05:58 Calcium 8.4 mg/dL (8.5-10.1) L 04/16/22 05:58 Corrected Calcium 9.4 mg/dL (8.5-10.1) 04/16/22 05:58 Magnesium 1.7 mg/dL (2.0-2.9) L 04/16/22 05:58 Total Bilirubin 0.40 mg/dL (0.2-1.0) 04/16/22 05:58 AST 24 Units/L (15-37) 04/16/22 05:58 ALT 11 Units/L (12-78) L 04/16/22 05:58 Alkaline Phosphatase 100 Units/L (46-116) 04/16/22 05:58 Total Protein 6.1 g/dL (6.4-8.2) L 04/16/22 05:58 Albumin 2.7 g/dL (3.4-5.0) L 04/16/22 05:58 Globulin 3.4 g/dL (2.5-4.5) 04/16/22 05:58 Albumin/Globulin Ratio 0.8 Ratio (1.1-2.1) L 04/16/22 05:58 - Plan (1) Altered mental status Status: Acute Plan: UA AND UC COLLECTED ON ER ADMISSION. CT HEAD NEGATIVE FOR ACUTE CVA, OBTAINED ON ER ADMISSION. CONTINUE GENTLE IV HYDRATION, WOUND CARE. FALL RISK, PT EVALUATION. (2) Muscle weakness Status: Acute (3) Urinary tract infection Status: Acute (4) Contusion of forearm, right Status: Acute (5) Hypertension Status: Acute
[2022-04-16] MEDS ORDERED: TAPAZOLE ONE (19:55)
[2022-04-16] MEDS: TAPAZOLE PO SCH (20:05)
[2022-04-16] MEDS: MELATONIN PO PRN (20:05)
[2022-04-16] MEDS: CATAPRES TAB 0.1 MG PO PRN (20:07)
[2022-04-16] MEDS ORDERED: APRESOLINE INJ 20 MG VIAL IVP ONE (23:28)
--- NOTE | 2022-04-16 23:45 | EKG ---
Test Reason : hypertension Blood Pressure : */* mmHG Vent. Rate : 55 BPM Atrial Rate : 55 BPM P-R Int : 214 ms QRS Dur : 72 ms QT Int : 436 ms P-R-T Axes : 38 42 71 degrees QTc Int : 417 ms Sinus bradycardia with 1st degree AV block Low voltage QRS Borderline ECG No previous ECGs available Confirmed by Sergio Hunt ([id number]) on 04/18/2022 8:01:43 AM Referred By: Confirmed By: Sergio Hunt
[2022-04-17 05:20] LABS: BASOPHILS # (AUTO) 0.1 X10^3/uL (0.0-0.1); BASOPHILS % (AUTO) 0.8 % (0.2-1.0); EOSINOPHILS # (AUTO) 0.2 x10^3/uL (0.0-0.2); EOSINOPHILS % (AUTO) 2.8 % (0.9-2.9); HEMATOCRIT 41.3 % (36.0-47.0); HEMOGLOBIN 13.8 g/dL (12.0-16.0); LYMPHOCYTES # (AUTO) 1.7 X10^3/uL (1.3-2.9); LYMPHOCYTES % (AUTO) 20.9 % (21.0-51.0); MEAN CORPUSCULAR HEMOGLOBIN 29.7 pg (27.0-34.0); MEAN CORPUSCULAR HGB CONC 33.4 g/dL (33.0-35.0); MEAN CORPUSCULAR VOLUME 88.8 fL (80.0-100.0); MONOCYTES # (AUTO) 0.7 x10^3/uL (0.3-0.8); MONOCYTES % (AUTO) 9.4 % (0.0-13.0); NEUTROPHILS # (AUTO) 5.2 x10^3/uL (2.2-4.8); NEUTROPHILS % (AUTO) 66.1 % (42.0-75.0); RED BLOOD COUNT 4.66 X10^6/uL (3.5-5.4); RED CELL DISTRIBUTION WIDTH 13.6 % (11.6-16.5); WHITE BLOOD COUNT 7.9 X10^3/uL (3.6-10.0)
[2022-04-17 05:33] LABS: ALANINE AMINOTRANSFERASE 11 Units/L (12-78); ALBUMIN 3.2 g/dL (3.4-5.0); ALKALINE PHOSPHATASE 110 Units/L (46-116); ASPARTATE AMINO TRANSFERASE 20 Units/L (15-37); BLOOD UREA NITROGEN 9 mg/dL (7-18); CALCIUM 8.6 mg/dL (8.5-10.1); CARBON DIOXIDE 30.5 mmol/L (21-32); CHLORIDE 104 mmol/L (98-107); COR CA(FOR HYPOALB) 9.2 mg/dL (8.5-10.1); CREATININE 1.07 mg/dL (0.55-1.02); MAGNESIUM 2.1 mg/dL (2.0-2.9); SODIUM 140 mmol/L (136-145); TOTAL PROTEIN 6.8 g/dL (6.4-8.2); eGFR NON BLACK RACES 52 (>60)
[2022-04-17] MEDS: SEROquel TAB 25 mg PO SCH ×3 (07:33→21:21)
[2022-04-17] MEDS: CYMBALTA PO SCH ×2 (07:33→10:28)
[2022-04-17] MEDS: ZESTRIL TAB 10 MG PO SCH ×2 (07:33→10:29)
[2022-04-17] MEDS: LOVENOX INJ 40 MG SYR SC SCH ×2 (07:34→10:29)
[2022-04-17] MEDS: ROCEPHIN VIAL 1 GRAM 1 G in NS 100 ML IV 100 ML IV SCH ×2 (07:35→10:40)
[2022-04-17] MEDS ORDERED: VISTARIL PO PRN (09:15)
[2022-04-17] MEDS ORDERED: HALDOL INJ IM ONE (16:11)
--- NOTE | 2022-04-17 18:05 | PCM.PROG ---
Progress Note - Progress Note for Day of Date of Exam: 04/17/22 - Subjective Subjective: PT IS 86 WF, ADMITTED WITH ALTERED MENTAL STATUS AND WEAKNESS. PT HAD NEGATIVE CT HEAD ON ADMISSION.PT HAS HAD SOME AGITATION, PREVIOUSLY CONTROLLED WITH SEROQUEL.PT HAS BEEN MORE ACTIVE AND AGITATED. HER SEROQUEL IS CURRENTLY AT 50MG BID WITH VISTARIL PRN. NURSING STAFF REPORTS PT CONTINUES TO TRY TO GET UP AND HAS WEAKNESS. SHE IS IRRITABLE AND RESTLESS. FAMILY HAS REQUESTED [facility] PLACEMENT AND SHE MAY BENEFIT FOR BEHAVIOR HEALTH FIRST ADJUST HER MEDICATION. URINE CULTURE PENDING. CASE MANAGEMENT HAS BEEN CONSULTED FOR NH PLACEMENT. FAMILY AT BEDSIDE THIS MORNING AND AGREES WITH PLAN OF CARE. - Past Medical Family Social History Past Med/Fam/Surg Hx: No changes since H&P Allergies: Allergies No Known Drug Allergies Allergy (Verified 05/15/18 10:13) - Review of Systems ROS: No change since H&P - Vital Signs and I&O's Vital Signs: Temperature 98.0 F Pulse Rate [Right Radial] 72 Respiratory Rate 18 Blood Pressure [Right Arm] 213/98 Blood Pressure [Left Arm] 165/79 Blood Pressure 193/93 O2 Sat by Pulse Oximetry 98 Intake and Output: Intake & Output 04/15/22 04/16/22 04/17/22 04/18/22 11:59 11:59 11:59 11:59 Intake Total 1421 / 1421 758 / 758 1241 / 1241 480 / 480 Output Total 750 / 750 Balance 671 / 671 758 / 758 1241 / 1241 480 / 480 - Physical Exam Oriented: Person Eyes: Normal Ear: Normal Nose: Normal Throat: Normal Respiratory: Diminished Cardiovascular: Normal. negative: Edema : Normal Auscultation: Bowel Sounds: Normal Tenderness: Normal Skin: Decreased Turgur, Wound Musculoskeletal: Right, Left, Motor Deficit Psychiatric: Anxiety, Agitation Mood Description: Anxious Affect: Anxious Speech Pattern: Clear, Appropriate - Laboratory and Diagnostics Result Diagrams: 04/17/22 04:59 04/17/22 04:59 Labs: Laboratory WBC 7.9 X10^3/uL (3.6-10.0) 04/17/22 04:59 RBC 4.66 X10^6/uL (3.5-5.4) 04/17/22 04:59 Hgb 13.8 g/dL (12.0-16.0) 04/17/22 04:59 Hct 41.3 % (36.0-47.0) 04/17/22 04:59 MCV 88.8 fL (80.0-100.0) 04/17/22 04:59 MCH 29.7 pg (27.0-34.0) 04/17/22 04:59 MCHC 33.4 g/dL (33.0-35.0) 04/17/22 04:59 RDW 13.6 % (11.6-16.5) 04/17/22 04:59 Plt Count 277 X10^3/uL (150.0-450.0) 04/17/22 04:59 MPV 9.0 fL (7.4-11.0) 04/17/22 04:59 Neut % (Auto) 66.1 % (42.0-75.0) 04/17/22 04:59 Lymph % (Auto) 20.9 % (21.0-51.0) L 04/17/22 04:59 [place] % (Auto) 9.4 % (0.0-13.0) 04/17/22 04:59 Eos % (Auto) 2.8 % (0.9-2.9) 04/17/22 04:59 Baso % (Auto) 0.8 % (0.2-1.0) 04/17/22 04:59 Neut # (Auto) 5.2 x10^3/uL (2.2-4.8) H 04/17/22 04:59 Lymph # (Auto) 1.7 X10^3/uL (1.3-2.9) 04/17/22 04:59 [place] # (Auto) 0.7 x10^3/uL (0.3-0.8) 04/17/22 04:59 Eos # (Auto) 0.2 x10^3/uL (0.0-0.2) 04/17/22 04:59 Baso # (Auto) 0.1 X10^3/uL (0.0-0.1) 04/17/22 04:59 Absolute Nucleated RBC 0.1 /100WBC 04/17/22 04:59 Sodium 140 mmol/L (136-145) 04/17/22 04:59 Corrected Sodium TNP 04/17/22 04:59 Potassium 3.1 mmol/L (3.5-5.1) L 04/17/22 04:59 Chloride 104 mmol/L (98-107) 04/17/22 04:59 Carbon Dioxide 30.5 mmol/L (21-32) 04/17/22 04:59 BUN 9 mg/dL (7-18) 04/17/22 04:59 Creatinine 1.07 mg/dL (0.55-1.02) H 04/17/22 04:59 Est GFR (MDRD) Af Amer > 60 (>60) 04/17/22 04:59 Est GFR (MDRD) Non-Af 52 (>60) L 04/17/22 04:59 Glucose 81 mg/dL (65-99) 04/17/22 04:59 Calcium 8.6 mg/dL (8.5-10.1) 04/17/22 04:59 Corrected Calcium 9.2 mg/dL (8.5-10.1) 04/17/22 04:59 Magnesium 2.1 mg/dL (2.0-2.9) 04/17/22 04:59 Total Bilirubin 0.60 mg/dL (0.2-1.0) 04/17/22 04:59 AST 20 Units/L (15-37) 04/17/22 04:59 ALT 11 Units/L (12-78) L 04/17/22 04:59 Alkaline Phosphatase 110 Units/L (46-116) 04/17/22 04:59 Total Protein 6.8 g/dL (6.4-8.2) 04/17/22 04:59 Albumin 3.2 g/dL (3.4-5.0) L 04/17/22 04:59 Globulin 3.6 g/dL (2.5-4.5) 04/17/22 04:59 Albumin/Globulin Ratio 0.9 Ratio (1.1-2.1) L 04/17/22 04:59 - Plan (1) Altered mental status Status: Acute Plan: UA AND UC COLLECTED ON ER ADMISSION. CT HEAD NEGATIVE FOR ACUTE CVA, OBTAINED ON ER ADMISSION. CONTINUE GENTLE IV HYDRATION, WOUND CARE. FALL RISK, PT EVALUATION. (2) Muscle weakness Status: Acute (3) Urinary tract infection Status: Acute (4) Contusion of forearm, right Status: Acute (5) Hypertension Status: Acute
[2022-04-17] MEDS ORDERED: TAPAZOLE ONE (20:36)
[2022-04-17] MEDS: TAPAZOLE PO SCH (21:21)
[2022-04-18 02:33] VITALS: BP 154/82
== END 2022-04-17 23:10 ==
LOC: MED/SURG
PROVIDERS: ADMIT Internal Medicine; ATTEND Internal Medicine
DX: R29.6 Repeated falls; R41.82 Altered mental status, unspecified; W18.39XA Other fall on same level, initial encounter; M62.81 Muscle weakness (generalized); S50.11XA Contusion of right forearm, initial encounter; N39.0 Urinary tract infection, site not specified; I10 Essential (primary) hypertension; Z20.822 Contact with and (suspected) exposure to COVID-19; F03.90 Unspecified dementia, unspecified severity, without behavioral disturbance, psychotic disturbance, mood disturbance, and anxiety; R26.89 Other abnormalities of gait and mobility

== ENCOUNTER 2022-12-27 10:31 | Inpatient (IN) ==
[2022-12-27] MEDS ORDERED: ZOFRAN INJ 4 MG VIAL ONE (10:42)
[2022-12-27] MEDS ORDERED: ZOFRAN INJ 4 MG VIAL IVP ONE (10:43)
--- NOTE | 2022-12-27 10:50 | DR.NAUSEAF ---
HPI Time Seen Time Seen by Provider: 12/27/22 10:49 Primary Care Physician Primary Care Physician: Dr. Hart Complaints Chief Complaint Doctors Comments: NAUSEA AND VOMITING SINCE THIS AM. NO BOWEL MOVEMENT IN 3 DAYS. Chief Complaint:: [facility] staff reports that for the past hour pt has has constant nausea and vomiting. Pt has not had a BM in several days. Self Treatment fo Chief Complaint: Pt did receive Zofran 4mg po at 1005 this morning with no improvement of symptoms Source History Provided: Custodial Mode of Arrival Mode of Arrival: Wheelchair Timing Onset of Chief Complaint: 12/27/22 PMH PMH Past Medical History: Yes Past Medical History: Anxiety, Arthritis, Dementia, Depression, Hypertension and Hyperthyroidism Past Medical History Comment: thyrotoxicosis, vitamin d deficiency Past Surgical History: Yes Surgical History: Hysterectomy Family History History of Family Medical Conditions: Yes Family Medical History: Diabetes Mellitus and Hypertension Social History Does patient currently use any type of tobacco product: No Have you used tobacco products in the last 12 months: No Type of Tobacco Use: None Does any household member use tobacco: No Alcohol Use: None Do you use any recreational Drugs:: No Lives With: Other Lives Where: Custodial Infectious screening In the last 2 months have you had wt loss of >10#?: NO Have you had fever, night sweats or hemotysis?: No Have you traveled outside the country in the last 6 months?: No Isolation: Standard ROS Review of Systems Constitutional: Other (CONSTIPATION WITH NAUSEA,VOMITING AND ABDOMINAL PAIN) Eyes: No Symptoms Reported ENTM: No Symptoms Reported Respiratoy: No Symptoms Reported Cardiovascular: No Symptoms Reported Gastrointestinal/Abdominal: Abdominal Pain, Constipation, Nausea and Vomiting Genitourinary: No Symptoms Reported Neurological: No Symptoms Reported Musculoskeletal: No Symptoms Reported Integumentary: No Symptoms Reported Hematologic/Lymphatic: No Symptoms Reported Endocrine: No Symptoms Reported Psychiatric: Other (AGITATED) PE Vital Signs Vitals: Vital Signs Temperature 98.0 F Pulse Rate 111 Respiratory Rate 20 Respiratory Rate 20 Blood Pressure 102/58 O2 Sat by Pulse Oximetry 98 General Limitations: Physical Limitation (NON AMBULATORY) General Appearance: In Distress (MODERATE DISTRESS) Head Head Exam: Normal Inspection, Atraumatic and Normocephalic Eyes Eye exam: Normal Appearance, PERRL and EOMI ENT ENT Exam: Normal Exam, Normal Oropharynx and Normal External Ear Exam Neck Neck Exam: Normal Inspection, Full ROM and Trachea Midline Chest Chest Inspection: Normal Inspection and Symmetric Chest Wall Rise Respiratory Respiratory Exam: Normal Lung Sounds Bilat Respiratory Exam: Bilateral: Clear to Auscultation Cardiovascular Cardiovascular Exam: Regular Rate and Normal Rhythm Abdominal Exam Abdominal Exam: Tenderness (GLOBALLY) Abdominal Tenderness: Diffuse Rectal Rectal Exam: Deferred Extremities Extremities Exam: Normal Inspection Back Back Exam: Normal Inspection Neurologic Neurological Exam: Alert Psychiatric Psychiatric Exam: Agitated Skin Skin Exam: Warm, Dry and Intact MDM Differential Diagnosis Differential Diagnosis: Considerations may Include:: Bowel Obstruction, Gastritis, Urinary Tract Infection and Other (CONSTIPATION) COURSE Treatment Treatment: PATIENT C/O ABDOMINAL PAIN AND WAS GIVEN TORADOL 30MG IV. HAD CT OF ABDOMEN AND PELVIS THAT SHOWED LARGE AMOUNT OF STOOL WITHIN THE DISTAL DESCENDING COLON,SIGMOID COLON AND ESPECIALLY IN THE RECTUM SUSPICIOUS FOR CONSTIPATION AND FECAL IMPACTION,THERE IS A MASSAVE STOOL BOLUS WHICH APPEARS TO BE ASSOCIATED WITH DEVELOPING PNEUMATOSIS. THIS COULD INDICATE DEVELOPING STERCORAL COLITIS WHICH PUTS THE PATIENT AT RISK FOR RECTAL PERFORATION. SURGICAL EVALUATION IS RECOMMENDED . DR ARREDONDO WAS CALLED ANDSTATED HE WAS IN A PROCEDURE AT 1140 BUT HE WOULD COME IN TO EVALUATE THE PATIENT AFTERWARDS. THE PATIENT WAS ACCEPTED IN CONSENTATION BY DR ARREDONDO AND DR VALDOVINOS ACCEPTED THE PATIENT TO THE MEDICAL FLOOR. DR ARREDONDO WANTED THE PATIENT TO BE ON FLAGYL 500MG IV Q 12 HOURS AND TO DO MINERAL OIL EMEMAS. THE PATIENT ALSO HAD A UTI AND WAS GIVEMN FIRST DOSE OF ROCEPHINE 1 GRAM IV. WILL ADMIT TO OBSERVATION. [facility]OR Labs Reviewed Laboratory Results Reviewed?: Yes 12/27/22 10:45 12/27/22 10:45 Laboratory: WBC 12.5 X10^3/uL (3.6-10.0) H 12/27/22 10:45 RBC 4.69 X10^6/uL (3.5-5.4) 12/27/22 10:45 Hgb 12.5 g/dL (12.0-16.0) 12/27/22 10:45 Hct 39.3 % (36.0-47.0) 12/27/22 10:45 MCV 83.7 fL (80.0-100.0) 12/27/22 10:45 MCH 26.6 pg (27.0-34.0) L 12/27/22 10:45 MCHC 31.8 g/dL (33.0-35.0) L 12/27/22 10:45 RDW 16.2 % (11.6-16.5) 12/27/22 10:45 Plt Count 275 X10^3/uL (150.0-450.0) 12/27/22 10:45 MPV 9.0 fL (7.4-11.0) 12/27/22 10:45 Neut % (Auto) 66.4 % (42.0-75.0) 12/27/22 10:45 Lymph % (Auto) 26.6 % (21.0-51.0) 12/27/22 10:45 [place] % (Auto) 5.8 % (0.0-13.0) 12/27/22 10:45 Eos % (Auto) 0.7 % (0.9-2.9) L 12/27/22 10:45 Baso % (Auto) 0.5 % (0.2-1.0) 12/27/22 10:45 Neut # (Auto) 8.3 x10^3/uL (2.2-4.8) H 12/27/22 10:45 Lymph # (Auto) 3.3 X10^3/uL (1.3-2.9) H 12/27/22 10:45 [place] # (Auto) 0.7 x10^3/uL (0.3-0.8) 12/27/22 10:45 Eos # (Auto) 0.1 x10^3/uL (0.0-0.2) 12/27/22 10:45 Baso # (Auto) 0.1 X10^3/uL (0.0-0.1) 12/27/22 10:45 Absolute Nucleated RBC 0.1 /100WBC 12/27/22 10:45 Sodium 141 mmol/L (136-145) 12/27/22 10:45 Corrected Sodium 142 mmol/L (136-145) 12/27/22 10:45 Potassium 3.2 mmol/L (3.5-5.1) L 12/27/22 10:45 Chloride 102 mmol/L (98-107) 12/27/22 10:45 Carbon Dioxide 24.0 mmol/L (21-32) 12/27/22 10:45 BUN 20 mg/dL (7-18) H 12/27/22 10:45 Creatinine 1.67 mg/dL (0.55-1.02) H 12/27/22 10:45 Est GFR (MDRD) Af Amer 37 (>60) L 12/27/22 10:45 Est GFR (MDRD) Non-Af 31 (>60) L 12/27/22 10:45 Glucose 159 mg/dL (65-99) H 12/27/22 10:45 Calcium 10.2 mg/dL (8.5-10.1) H 12/27/22 10:45 Corrected Calcium TNP 12/27/22 10:45 Magnesium 2.3 mg/dL (2.0-2.9) 12/27/22 10:45 Total Bilirubin 0.80 mg/dL (0.2-1.0) 12/27/22 10:45 AST 29 Units/L (15-37) 12/27/22 10:45 ALT 13 Units/L (12-78) 12/27/22 10:45 Alkaline Phosphatase 167 Units/L (46-116) H 12/27/22 10:45 Total Protein 7.6 g/dL (6.4-8.2) 12/27/22 10:45 Albumin 3.4 g/dL (3.4-5.0) 12/27/22 10:45 Globulin 4.2 g/dL (2.5-4.5) 12/27/22 10:45 Albumin/Globulin Ratio 0.8 Ratio (1.1-2.1) L 12/27/22 10:45 Specimen Type Catherized urine 12/27/22 11:45 Urine Color Patricia (YELLOW) 12/27/22 11:45 Urine Appearance Clear (CLEAR) 12/27/22 11:45 Urine pH 6.0 (5.0 - 8.0) 12/27/22 11:45 Ur Specific [place] 1.020 (1.000-1.030) 12/27/22 11:45 Urine Protein 3+ (NEGATIVE) 12/27/22 11:45 Urine Glucose (UA) 1+ (NEGATIVE) 12/27/22 11:45 Urine Ketones 1+ (NEGATIVE) 12/27/22 11:45 Urine Blood 2+ (NEGATIVE) 12/27/22 11:45 Urine Nitrite Positive (NEGATIVE) 12/27/22 11:45 Urine Bilirubin 2+ (NEGATIVE) 12/27/22 11:45 Urine Urobilinogen 4+ (NORMAL) 12/27/22 11:45 Ur Leukocyte Esterase 2+ (NEGATIVE) 12/27/22 11:45 Urine RBC 3-5 /HPF (0-3) A 12/27/22 11:45 Urine WBC 0-2 /HPF (0-5) 12/27/22 11:45 Ur Squamous Epith Cells Negative /HPF (NEGATIVE) 12/27/22 11:45 Ur Renal Epithelial Cell Rare /HPF (NEGATIVE) 12/27/22 11:45 Urine Bacteria Trace /HPF (NEGATIVE) 12/27/22 11:45 Hyaline Casts Many /LPF (NEGATIVE) 12/27/22 11:45 Urine Mucus Moderate /HPF (NEGATIVE) 12/27/22 11:45 Ur Culture Indicated? Yes/culture set up 12/27/22 11:45 Opioid Opioid Risk Tool Age (Micheal box if 16-45): No History of Preadolescent Sexual Abuse: No Total: 0 Total Score Risk Category: Low Risk Copyright: Rom SCHAEFER predicting aberrant behaviors Discharge Plan Diagnosis Discharge Problem: Colitis, Fecal impaction, UTI (urinary tract infection) Discharge Plan Patient Disposition: ADMITTED INPATIENT Condition: Stable
[2022-12-27] MEDS ORDERED: NS 500 ML IV 500 ML IV ONE ×2 (11:02→11:04)
[2022-12-27 11:08] LABS: BASOPHILS # (AUTO) 0.1 X10^3/uL (0.0-0.1); BASOPHILS % (AUTO) 0.5 % (0.2-1.0); EOSINOPHILS # (AUTO) 0.1 x10^3/uL (0.0-0.2); EOSINOPHILS % (AUTO) 0.7 % (0.9-2.9); HEMATOCRIT 39.3 % (36.0-47.0); HEMOGLOBIN 12.5 g/dL (12.0-16.0); LYMPHOCYTES # (AUTO) 3.3 X10^3/uL (1.3-2.9); LYMPHOCYTES % (AUTO) 26.6 % (21.0-51.0); MEAN CORPUSCULAR HEMOGLOBIN 26.6 pg (27.0-34.0); MEAN CORPUSCULAR HGB CONC 31.8 g/dL (33.0-35.0); MEAN CORPUSCULAR VOLUME 83.7 fL (80.0-100.0); MONOCYTES # (AUTO) 0.7 x10^3/uL (0.3-0.8); MONOCYTES % (AUTO) 5.8 % (0.0-13.0); NEUTROPHILS # (AUTO) 8.3 x10^3/uL (2.2-4.8); NEUTROPHILS % (AUTO) 66.4 % (42.0-75.0); PLATELET COUNT 275 X10^3/uL (150.0-450.0); RED BLOOD COUNT 4.69 X10^6/uL (3.5-5.4); RED CELL DISTRIBUTION WIDTH 16.2 % (11.6-16.5); WHITE BLOOD COUNT 12.5 X10^3/uL (3.6-10.0)
[2022-12-27 11:21] LABS: ALANINE AMINOTRANSFERASE 13 Units/L (12-78); ALBUMIN 3.4 g/dL (3.4-5.0); ALKALINE PHOSPHATASE 167 Units/L (46-116); ASPARTATE AMINO TRANSFERASE 29 Units/L (15-37); BLOOD UREA NITROGEN 20 mg/dL (7-18); CALCIUM 10.2 mg/dL (8.5-10.1); CHLORIDE 102 mmol/L (98-107); COR NA(FOR HYPERGLY) 142 mmol/L (136-145); CREATININE 1.67 mg/dL (0.55-1.02); GLUCOSE 159 mg/dL (65-99); POTASSIUM 3.2 mmol/L (3.5-5.1); SODIUM 141 mmol/L (136-145); TOTAL PROTEIN 7.6 g/dL (6.4-8.2); eGFR NON BLACK RACES 31 (>60)
[2022-12-27] MEDS ORDERED: TORADOL 30 MG VIAL IVP ONE (11:22)
[2022-12-27] MEDS ORDERED: TORADOL 30 MG VIAL ONE (11:23)
--- NOTE | 2022-12-27 11:33 | CT ---
HISTORYNausea, vomitingSTUDYCT abdomen pelvis without contrastTechnique: Axial noncontrast images with coronal and sagittal reformats. Dose reduction procedures were used with mA/kv adjusted for body size. THIS EXAMINATION IS LIMITED DUE TO THE LACK OF INTRAVENOUS AND oral contrast. The examination was performed in this manner at the sole discretion of the ordering caregiver.COMPARISONNoneFINDINGSLung bases are clear. There is a moderately large hiatal hernia present. The liver, spleen, adrenal glands, and pancreas are within normal limits but only to the limitations of an unenhanced examination. No opaque stones are present within the gallbladder. Kidneys are unobstructed and without stones. There is a large right renal cyst present. No ureteral calculi are identified. The appendix is not identified. There are no secondary signs of appendicitis present. Diffuse severe calcific atherosclerotic changes present in nondilated abdominal aorta and common iliac vessels. No intraperitoneal or retroperitoneal lymphadenopathy of significance is identified. There are no findings suggestive of enteritis colitis, or diverticulitis. However there is a very large amount of stool present within the distal descending and sigmoid colon in addition to which there is a very large bolus of stool within the rectum. Constipation with fecal impaction is suspected. There appear to be some areas of pneumatosis particularly in the rectum which could indicate developing stercoral colitis. Stercoral colitis can be associated with rectal perforation. No pelvic fluid or pelvic lymphadenopathy is identified. No bladder abnormality is identified. No lytic or blastic skeletal lesions of significance are identified. Diffuse severe lumbar degenerative disc disease and facet arthropathy identified.IMPRESSIONVery large amount of stool within the distal descending colon, sigmoid colon, and especially the rectum suspicious for constipation and fecal impaction. there is a massive stool bolus which appears to be associated with some developing pneumatosis. This could indicate developing stercoral colitis which puts the patient at risk for rectal perforation. Surgical evaluation is recommended.Moderately large hiatal herniaElectronically signed by: ANDRZEJ SANCHEZ (Dec 27, 2022 11:31:07)
[2022-12-27 12:10] LABS: BILIRUBIN,URINE 2+ (NEGATIVE); BLOOD/HEMOGLOBIN,URINE 2+ (NEGATIVE); GLUCOSE, URINE 1+ (NEGATIVE); KETONES,URINE 1+ (NEGATIVE); LEUKOCYTE ESTERASE ,URINE 2+ (NEGATIVE); NITRITES,URINE POSITIVE (NEGATIVE); PROTEIN,URINE 3+ (NEGATIVE); UROBILINOGEN,URINE 4+ (NORMAL)
[2022-12-27 12:27] LABS: APPEARANCE,URINE CLEAR (CLEAR); COLOR,URINE AMBER (YELLOW)
[2022-12-27 12:28] LABS: BACTERIA,URINE TRACE /HPF (NEGATIVE); HYALINE CASTS, URINE MANY /LPF (NEGATIVE); RENAL EPITHELIAL CELLS,URINE RARE /HPF (NEGATIVE); SQUAMOUS EPITHELIAL CELL,UR NEGATIVE /HPF (NEGATIVE)
[2022-12-27] MEDS ORDERED: FLAGYL IV PREMIX 500 MG BAG 500 MG/100 ML BAG IV ONE ×2 (12:47→12:55)
[2022-12-27] MEDS ORDERED: ROCEPHIN VIAL 1 GRAM 1 G in NS 100 ML IV 100 ML IV ONE (13:59)
[2022-12-27] MEDS ORDERED: ROCEPHIN VIAL 1 GRAM ONE (14:01)
[2022-12-27] MEDS ORDERED: NS 100 ML IV 100 ML ONE (14:01)
[2022-12-27] MEDS ORDERED: PHENERGAN INJ 25 MG IM PRN (14:50)
[2022-12-27] MEDS ORDERED: MINERAL OIL RECTAL ONE (15:47)
[2022-12-27] MEDS ORDERED: ZOFRAN INJ 4 MG VIAL IVP PRN (15:59)
[2022-12-27] MEDS ORDERED: MINERAL OIL RECTAL PRN (16:04)
[2022-12-27 16:42] VITALS: BMI 23.9
[2022-12-27] MEDS: ROCEPHIN VIAL 1 GRAM 1 G in NS 100 ML IV 100 ML IV SCH (17:09)
[2022-12-27] MEDS: NS 1,000 ML IV 1,000 ML IV SCH (17:21)
[2022-12-27] MEDS ORDERED: CITROMA PO ONE (18:00)
[2022-12-27] MEDS ORDERED: CONSULT PHARMACY - POTASSIUM & MAGNESIUM XX SCH (18:00)
[2022-12-27] MEDS ORDERED: MILK OF MAGNESIA PO ONE (20:00)
[2022-12-27] MEDS ORDERED: MILK OF MAGNESIA PO SCH (20:00)
[2022-12-27] MEDS ORDERED: DULCOLAX TAB EC 5 MG PO ONE (20:00)
[2022-12-27] MEDS: K-RIDER 10 MEQ/NS 100 ML 10 MEQ/100 ML BAG IV SCH ×4 (20:37→23:46)
[2022-12-27] MEDS: FLAGYL IV PREMIX 500 MG BAG 500 MG/100 ML BAG IV SCH (20:40)
[2022-12-28] MEDS: FLAGYL IV PREMIX 500 MG BAG 500 MG/100 ML BAG IV SCH ×4 (02:16→20:07)
[2022-12-28] MEDS: NS 1,000 ML IV 1,000 ML IV SCH ×5 (02:16→23:29)
[2022-12-28] MEDS ORDERED: BUTT CREAM (COMPOUND) TOP PRN (04:02)
[2022-12-28] MEDS ORDERED: BUTT CREAM (COMPOUND) ONE (04:07)
[2022-12-28 05:00] LABS: BASOPHILS % (AUTO) 0.1 % (0.2-1.0); HEMATOCRIT 36.5 % (36.0-47.0); HEMOGLOBIN 11.9 g/dL (12.0-16.0); LYMPHOCYTES # (AUTO) 0.6 X10^3/uL (1.3-2.9); LYMPHOCYTES % (AUTO) 4.1 % (21.0-51.0); MEAN CORPUSCULAR HGB CONC 32.5 g/dL (33.0-35.0); MEAN CORPUSCULAR VOLUME 83.1 fL (80.0-100.0); MEAN PLATELET VOLUME 9.4 fL (7.4-11.0); MONOCYTES % (AUTO) 6.4 % (0.0-13.0); NEUTROPHILS # (AUTO) 13.7 x10^3/uL (2.2-4.8); NEUTROPHILS % (AUTO) 89.4 % (42.0-75.0); PLATELET COUNT 268 X10^3/uL (150.0-450.0); RED BLOOD COUNT 4.39 X10^6/uL (3.5-5.4); RED CELL DISTRIBUTION WIDTH 16.4 % (11.6-16.5); WHITE BLOOD COUNT 15.3 X10^3/uL (3.6-10.0)
[2022-12-28 05:10] LABS: ALBUMIN 2.5 g/dL (3.4-5.0); CALCIUM 8.4 mg/dL (8.5-10.1); CARBON DIOXIDE 27.9 mmol/L (21-32); COR CA(FOR HYPOALB) 9.6 mg/dL (8.5-10.1); CREATININE 1.69 mg/dL (0.55-1.02); POTASSIUM 4.7 mmol/L (3.5-5.1); TOTAL PROTEIN 5.9 g/dL (6.4-8.2)
--- NOTE | 2022-12-28 06:31 | RAD ---
HISTORYFecal impaction colitisSTUDYKUBCOMPARISONCT abdomen December 27, 2022FINDINGSThere is moderate gaseous distention of scattered segments of colon without evidence for definite pneumatosis, mass formation, organ enlargement or ascites. No large fecal accumulation is identified. The retroperitoneal structures are obscured.IMPRESSIONNonobstructive colon dilatation.Electronically signed by: SOFI TESFAYE (Dec 28, 2022 06:29:26)
[2022-12-28] MEDS: ROCEPHIN VIAL 1 GRAM 1 G in NS 100 ML IV 100 ML IV SCH (09:42)
--- NOTE | 2022-12-28 10:40 | DR.H&P ---
H&P History & Physical for Day of: H&P Date: 12/28/22 Chief Complaint Chief Complaint: abdominal pain, nausea/vomiting Allergies Allergies Allergy/AdvReac Type Severity Reaction Status Date / Time Sulfa (Sulfonamide Allergy Verified 11/16/22 02:10 Antibiotics) [SULFA] History of Present Illness History of Present Illness: Ms Hancock is a 87y/o female with a PMH of dementia, HTN, anxiety, insomnia and hyperthyroidism presented with abdominal pain and N /V. She is a resident of [place]. As per staff, patient has not had a BM in 3 days. On admission, CTAP showed large stool burden with fecal impaction along with possible pneumatosis. Dr Quintanilla was consulted and recommended enemas and stool softner along with IV antibiotics. Patient has had several small BMs all night and this morning. She is a poor historian. She still reports having diffuse abdominal pain. She has not had any vomiting. UA was suggestive of infection. Labs/imaging reviewed - WBC 15.3 Hgb 11.9 K: 4.7 BUN/Cr 28/1.69 - CTAP - KUB 12/28/22: non-obstructive pattern Plan: follow recommendation as per Dr Quintanilla. Continue IV Rocephin and Flagyl. Continue stool softner and enemas prn. Monitor stool output. Replace electrolytes prn. Follow urine culture. Continue hydration with IVF. Patient is currently NPO. Monitor AM labs/imaging. Past Medical History Past Medical History: Anxiety, Arthritis, Dementia, Depression, Hypertension and Hyperthyroidism Past Surgical History Surgical History: Hysterectomy Family History Family Medical History: Diabetes Mellitus and Hypertension Social History Does patient currently use any type of tobacco product: No Have you used tobacco products in the last 12 months: No Type of Tobacco Use: None Does any household member use tobacco: No Alcohol Use: None Drug Use: None Medications Home Medications: Home Medications Medication Instructions Recorded Confirmed Type duloxetine 60 mg capsule,delayed 60 mg PO QDAY 02/16/22 12/27/22 History release methimazole 5 mg tablet 5 mg PO HS 02/16/22 12/27/22 History quetiapine 25 mg tablet 12.5 mg PO QPM 02/16/22 12/27/22 History melatonin 5 mg tablet 5 mg PO HS PRN 04/13/22 12/27/22 History amlodipine 5 mg tablet 5 mg PO QDAY 07/08/22 12/27/22 History buspirone 7.5 mg tablet 7.5 mg PO BID 07/08/22 12/27/22 History trazodone 150 mg tablet 75 mg PO HS 07/08/22 12/27/22 History acetaminophen 325 mg tablet 650 mg PO Q4H PRN 12/27/22 12/27/22 History (Tylenol) cholecalciferol (vitamin D3) 125 125 mcg PO WEEKLY 12/27/22 12/27/22 History mcg (5,000 unit) tablet (Vitamin D3) lisinopril 30 mg tablet 30 mg PO QDAY 12/27/22 12/27/22 History tramadol 50 mg tablet 50 mg PO Q4H PRN 12/27/22 12/27/22 History Labs 12/28/22 04:35 12/28/22 04:35 Labs: Laboratory WBC 15.3 X10^3/uL (3.6-10.0) H 12/28/22 04:35 RBC 4.39 X10^6/uL (3.5-5.4) 12/28/22 04:35 Hgb 11.9 g/dL (12.0-16.0) L 12/28/22 04:35 Hct 36.5 % (36.0-47.0) 12/28/22 04:35 MCV 83.1 fL (80.0-100.0) 12/28/22 04:35 MCH 27.0 pg (27.0-34.0) 12/28/22 04:35 MCHC 32.5 g/dL (33.0-35.0) L 12/28/22 04:35 RDW 16.4 % (11.6-16.5) 12/28/22 04:35 Plt Count 268 X10^3/uL (150.0-450.0) 12/28/22 04:35 MPV 9.4 fL (7.4-11.0) 12/28/22 04:35 Neut % (Auto) 89.4 % (42.0-75.0) H 12/28/22 04:35 Lymph % (Auto) 4.1 % (21.0-51.0) L 12/28/22 04:35 [place] % (Auto) 6.4 % (0.0-13.0) 12/28/22 04:35 Eos % (Auto) 0.0 % (0.9-2.9) L 12/28/22 04:35 Baso % (Auto) 0.1 % (0.2-1.0) L 12/28/22 04:35 Neut # (Auto) 13.7 x10^3/uL (2.2-4.8) H 12/28/22 04:35 Lymph # (Auto) 0.6 X10^3/uL (1.3-2.9) L 12/28/22 04:35 [place] # (Auto) 1.0 x10^3/uL (0.3-0.8) H 12/28/22 04:35 Eos # (Auto) 0.0 x10^3/uL (0.0-0.2) 12/28/22 04:35 Baso # (Auto) 0.0 X10^3/uL (0.0-0.1) 12/28/22 04:35 Absolute Nucleated RBC 0.1 /100WBC 12/28/22 04:35 Sodium 140 mmol/L (136-145) 12/28/22 04:35 Corrected Sodium 141 mmol/L (136-145) 12/28/22 04:35 Potassium 4.7 mmol/L (3.5-5.1) 12/28/22 04:35 Chloride 106 mmol/L (98-107) 12/28/22 04:35 Carbon Dioxide 27.9 mmol/L (21-32) 12/28/22 04:35 BUN 28 mg/dL (7-18) H 12/28/22 04:35 Creatinine 1.69 mg/dL (0.55-1.02) H 12/28/22 04:35 Est GFR (MDRD) Af Amer 37 (>60) L 12/28/22 04:35 Est GFR (MDRD) Non-Af 30 (>60) L 12/28/22 04:35 Glucose 133 mg/dL (65-99) H 12/28/22 04:35 Calcium 8.4 mg/dL (8.5-10.1) L 12/28/22 04:35 Corrected Calcium 9.6 mg/dL (8.5-10.1) 12/28/22 04:35 Magnesium 2.3 mg/dL (2.0-2.9) 12/27/22 10:45 Total Bilirubin 1.00 mg/dL (0.2-1.0) 12/28/22 04:35 AST 26 Units/L (15-37) 12/28/22 04:35 ALT 13 Units/L (12-78) 12/28/22 04:35 Alkaline Phosphatase 296 Units/L (46-116) H 12/28/22 04:35 Total Protein 5.9 g/dL (6.4-8.2) L 12/28/22 04:35 Albumin 2.5 g/dL (3.4-5.0) L 12/28/22 04:35 Globulin 3.4 g/dL (2.5-4.5) 12/28/22 04:35 Albumin/Globulin Ratio 0.7 Ratio (1.1-2.1) L 12/28/22 04:35 Specimen Type Catherized urine 12/27/22 11:45 Urine Color Patricia (YELLOW) 12/27/22 11:45 Urine Appearance Clear (CLEAR) 12/27/22 11:45 Urine pH 6.0 (5.0 - 8.0) 12/27/22 11:45 Ur Specific [place] 1.020 (1.000-1.030) 12/27/22 11:45 Urine Protein 3+ (NEGATIVE) 12/27/22 11:45 Urine Glucose (UA) 1+ (NEGATIVE) 12/27/22 11:45 Urine Ketones 1+ (NEGATIVE) 12/27/22 11:45 Urine Blood 2+ (NEGATIVE) 12/27/22 11:45 Urine Nitrite Positive (NEGATIVE) 12/27/22 11:45 Urine Bilirubin 2+ (NEGATIVE) 12/27/22 11:45 Urine Urobilinogen 4+ (NORMAL) 12/27/22 11:45 Ur Leukocyte Esterase 2+ (NEGATIVE) 12/27/22 11:45 Urine RBC 3-5 /HPF (0-3) A 12/27/22 11:45 Urine WBC 0-2 /HPF (0-5) 12/27/22 11:45 Ur Squamous Epith Cells Negative /HPF (NEGATIVE) 12/27/22 11:45 Ur Renal Epithelial Cell Rare /HPF (NEGATIVE) 12/27/22 11:45 Urine Bacteria Trace /HPF (NEGATIVE) 12/27/22 11:45 Hyaline Casts Many /LPF (NEGATIVE) 12/27/22 11:45 Urine Mucus Moderate /HPF (NEGATIVE) 12/27/22 11:45 Ur Culture Indicated? Yes/culture set up 12/27/22 11:45 Review of Systems Constitutional: Weakness Eyes: No Symptoms Reported ENT: No Symptoms Reported Respiratory: No Symptoms Reported Cardiovascular: No Symptoms Reported Gastrointestinal: Nausea, Vomiting and Constipation Musculoskeletal: No Symptoms Reported Skin: No Symptoms Reported Neurological: Confusion Physical Exam Vital Signs: Vital Signs Temperature 98.4 F Temperature 100.8 F Pulse Rate [Bilateral Radial] 94 Pulse Rate [Bilateral Radial] 102 Respiratory Rate 20 Respiratory Rate 20 Blood Pressure [Right Arm] 121/56 Blood Pressure [Right Arm] 149/68 O2 Sat by Pulse Oximetry 96 O2 Sat by Pulse Oximetry 95 Oriented: Person and Place Eyes: Normal Ear: Normal Nose: Normal Respiratory: Diminished Throughout Cardiovascular: Normal Auscultation: Bowel Sounds: Decreased Tenderness: Diffuse Skin: Decreased Turgur Musculoskeletal: Normal Psychiatric: Normal Mood Description: Calm Affect: Flat Speech Pattern: Clear and Appropriate Assessment/Plan (1) Abdominal pain: Qualifiers: Abdominal location: generalized Qualified Code(s): R10.84 - Generalized abdominal pain Status: Acute (2) Fecal impaction: Status: Acute (3) Colitis: Status: Acute (4) Urinary tract infection: Qualifiers: Hematuria presence: without hematuria Urinary tract infection type: acute cystitis Qualified Code(s): N30.00 - Acute cystitis without hematuria Status: Acute (5) Acute renal insufficiency: Status: Acute (6) Hypokalemia: Status: Acute (7) Hypertension: Qualifiers: Hypertension type: primary hypertension Qualified Code(s): I10 - Essential (primary) hypertension Status: Acute (8) Dementia: Qualifiers: Dementia behavioral or psychological symptom: unspecified whether behavioral, psychotic, or mood disturbance or anxiety Dementia severity: unspecified severity Dementia type: unspecified type Qualified Code(s): F03.90 - Unspecified dementia, unspecified severity, without behavioral disturbance, psychotic disturbance, mood disturbance, and anxiety Status: Acute Review H&P Reviewed: Yes Patient was examined?: Yes
[2022-12-29] MEDS: FLAGYL IV PREMIX 500 MG BAG 500 MG/100 ML BAG IV SCH ×4 (02:39→20:05)
[2022-12-29 04:44] LABS: BASOPHILS % (AUTO) 0.2 % (0.2-1.0); EOSINOPHILS % (AUTO) 0.1 % (0.9-2.9); HEMATOCRIT 32.2 % (36.0-47.0); HEMOGLOBIN 10.6 g/dL (12.0-16.0); LYMPHOCYTES # (AUTO) 0.9 X10^3/uL (1.3-2.9); LYMPHOCYTES % (AUTO) 7.6 % (21.0-51.0); MEAN CORPUSCULAR HEMOGLOBIN 27.2 pg (27.0-34.0); MEAN CORPUSCULAR HGB CONC 32.9 g/dL (33.0-35.0); MEAN CORPUSCULAR VOLUME 82.7 fL (80.0-100.0); MEAN PLATELET VOLUME 9.2 fL (7.4-11.0); MONOCYTES # (AUTO) 1.3 x10^3/uL (0.3-0.8); MONOCYTES % (AUTO) 10.9 % (0.0-13.0); NEUTROPHILS # (AUTO) 9.8 x10^3/uL (2.2-4.8); NEUTROPHILS % (AUTO) 81.2 % (42.0-75.0); PLATELET COUNT 209 X10^3/uL (150.0-450.0); RED BLOOD COUNT 3.89 X10^6/uL (3.5-5.4); RED CELL DISTRIBUTION WIDTH 16.5 % (11.6-16.5)
[2022-12-29 04:53] LABS: ALANINE AMINOTRANSFERASE 13 Units/L (12-78); ALBUMIN 2.1 g/dL (3.4-5.0); ALKALINE PHOSPHATASE 176 Units/L (46-116); ASPARTATE AMINO TRANSFERASE 24 Units/L (15-37); BLOOD UREA NITROGEN 27 mg/dL (7-18); CALCIUM 7.6 mg/dL (8.5-10.1); CARBON DIOXIDE 25.8 mmol/L (21-32); CHLORIDE 109 mmol/L (98-107); COR CA(FOR HYPOALB) 9.1 mg/dL (8.5-10.1); CREATININE 1.27 mg/dL (0.55-1.02); GLUCOSE 87 mg/dL (65-99); POTASSIUM 3.6 mmol/L (3.5-5.1); SODIUM 142 mmol/L (136-145); TOTAL PROTEIN 5.1 g/dL (6.4-8.2); eGFR NON BLACK RACES 42 (>60)
[2022-12-29] MEDS: NS 1,000 ML IV 1,000 ML IV SCH ×4 (05:20→23:41)
[2022-12-29] MEDS ORDERED: CONSULT PHARMACY - POTASSIUM & MAGNESIUM XX SCH ×2 (06:00)
[2022-12-29] MEDS ORDERED: MILK OF MAGNESIA PO ONE (08:55)
[2022-12-29] MEDS ORDERED: DULCOLAX TAB EC 5 MG PO ONE (08:55)
[2022-12-29] MEDS ORDERED: K-RIDER 10 MEQ/NS 100 ML 20 MEQ/200 ML BAG IV ONE (09:00)
[2022-12-29] MEDS: ROCEPHIN VIAL 1 GRAM 1 G in NS 100 ML IV 100 ML IV SCH (09:11)
--- NOTE | 2022-12-29 09:23 | DR.PROGNOT ---
HOSPITAL PROGRESS NOTE Progress Note for Day of: Progress Note Date: 12/29/22 Chief Complaint Chief Complaint: moderate lower abdominal pain , no vomiting . constantly passing soft stool , no bleeding . KUB no obstruction , WBC 12.00 BUN and Creat 27 and 1.27. Past Medical Family Social History Allergies: Allergies Sulfa (Sulfonamide Antibiotics) [SULFA] Allergy (Verified 11/16/22 02:10) Vital Signs Vital Signs: Vital Signs Temperature 97.9 F Pulse Rate [Bilateral Radial] 97 Respiratory Rate 18 Blood Pressure [Right Arm] 145/64 O2 Sat by Pulse Oximetry 95 Physical Exam Oriented: Person and Place Eyes: Normal Ear: Normal Nose: Normal Cardiovascular: Normal GI:Auscultation: Decreased GI: Tenderness: Diffuse and Other (soft, slightly tympanic and lower tenderness , no rebound .. ) Skin: Decreased Turgur Musculoskeletal: Normal Psychiatric: Normal Mood Description: Calm Affect: Flat Speech Pattern: Clear and Appropriate Laboratory and Diagnostics 12/29/22 04:10 12/29/22 04:10 Labs: 12/27/22 11:45 Urine,Catheterized Urine Culture - Preliminary Laboratory WBC 12.0 X10^3/uL (3.6-10.0) H 12/29/22 04:10 RBC 3.89 X10^6/uL (3.5-5.4) 12/29/22 04:10 Hgb 10.6 g/dL (12.0-16.0) L 12/29/22 04:10 Hct 32.2 % (36.0-47.0) L 12/29/22 04:10 MCV 82.7 fL (80.0-100.0) 12/29/22 04:10 MCH 27.2 pg (27.0-34.0) 12/29/22 04:10 MCHC 32.9 g/dL (33.0-35.0) L 12/29/22 04:10 RDW 16.5 % (11.6-16.5) 12/29/22 04:10 Plt Count 209 X10^3/uL (150.0-450.0) 12/29/22 04:10 MPV 9.2 fL (7.4-11.0) 12/29/22 04:10 Neut % (Auto) 81.2 % (42.0-75.0) H 12/29/22 04:10 Lymph % (Auto) 7.6 % (21.0-51.0) L 12/29/22 04:10 [place] % (Auto) 10.9 % (0.0-13.0) 12/29/22 04:10 Eos % (Auto) 0.1 % (0.9-2.9) L 12/29/22 04:10 Baso % (Auto) 0.2 % (0.2-1.0) 12/29/22 04:10 Neut # (Auto) 9.8 x10^3/uL (2.2-4.8) H 12/29/22 04:10 Lymph # (Auto) 0.9 X10^3/uL (1.3-2.9) L 12/29/22 04:10 [place] # (Auto) 1.3 x10^3/uL (0.3-0.8) H 12/29/22 04:10 Eos # (Auto) 0.0 x10^3/uL (0.0-0.2) 12/29/22 04:10 Baso # (Auto) 0.0 X10^3/uL (0.0-0.1) 12/29/22 04:10 Absolute Nucleated RBC 0.0 /100WBC 12/29/22 04:10 Sodium 142 mmol/L (136-145) 12/29/22 04:10 Corrected Sodium TNP 12/29/22 04:10 Potassium 3.6 mmol/L (3.5-5.1) 12/29/22 04:10 Chloride 109 mmol/L (98-107) H 12/29/22 04:10 Carbon Dioxide 25.8 mmol/L (21-32) 12/29/22 04:10 BUN 27 mg/dL (7-18) H 12/29/22 04:10 Creatinine 1.27 mg/dL (0.55-1.02) H 12/29/22 04:10 Est GFR (MDRD) Af Amer 51 (>60) L 12/29/22 04:10 Est GFR (MDRD) Non-Af 42 (>60) L 12/29/22 04:10 Glucose 87 mg/dL (65-99) 12/29/22 04:10 Calcium 7.6 mg/dL (8.5-10.1) L 12/29/22 04:10 Corrected Calcium 9.1 mg/dL (8.5-10.1) 12/29/22 04:10 Magnesium 2.2 mg/dL (2.0-2.9) 12/29/22 04:10 Total Bilirubin 0.70 mg/dL (0.2-1.0) 12/29/22 04:10 AST 24 Units/L (15-37) 12/29/22 04:10 ALT 13 Units/L (12-78) 12/29/22 04:10 Alkaline Phosphatase 176 Units/L (46-116) H 12/29/22 04:10 Total Protein 5.1 g/dL (6.4-8.2) L 12/29/22 04:10 Albumin 2.1 g/dL (3.4-5.0) L 12/29/22 04:10 Globulin 3.0 g/dL (2.5-4.5) 12/29/22 04:10 Albumin/Globulin Ratio 0.7 Ratio (1.1-2.1) L 12/29/22 04:10 Specimen Type Catherized urine 12/27/22 11:45 Urine Color Patricia (YELLOW) 12/27/22 11:45 Urine Appearance Clear (CLEAR) 12/27/22 11:45 Urine pH 6.0 (5.0 - 8.0) 12/27/22 11:45 Ur Specific [place] 1.020 (1.000-1.030) 12/27/22 11:45 Urine Protein 3+ (NEGATIVE) 12/27/22 11:45 Urine Glucose (UA) 1+ (NEGATIVE) 12/27/22 11:45 Urine Ketones 1+ (NEGATIVE) 12/27/22 11:45 Urine Blood 2+ (NEGATIVE) 12/27/22 11:45 Urine Nitrite Positive (NEGATIVE) 12/27/22 11:45 Urine Bilirubin 2+ (NEGATIVE) 12/27/22 11:45 Urine Urobilinogen 4+ (NORMAL) 12/27/22 11:45 Ur Leukocyte Esterase 2+ (NEGATIVE) 12/27/22 11:45 Urine RBC 3-5 /HPF (0-3) A 12/27/22 11:45 Urine WBC 0-2 /HPF (0-5) 12/27/22 11:45 Ur Squamous Epith Cells Negative /HPF (NEGATIVE) 12/27/22 11:45 Ur Renal Epithelial Cell Rare /HPF (NEGATIVE) 12/27/22 11:45 Urine Bacteria Trace /HPF (NEGATIVE) 12/27/22 11:45 Hyaline Casts Many /LPF (NEGATIVE) 12/27/22 11:45 Urine Mucus Moderate /HPF (NEGATIVE) 12/27/22 11:45 Ur Culture Indicated? Yes/culture set up 12/27/22 11:45 Assessment and Plan 1: abdominal pain and resolving impaction . to repeat KUB, more prep , colonoscopy on Friday.. Problem Patient Problems: Patient Problems (Updated 12/28/22 @ 10:40 by Rianna Cervantes) Colitis (Acute) K52.9 Fecal impaction (Acute) K56.41 UTI (urinary tract infection) (Acute) N39.0
--- NOTE | 2022-12-29 10:26 | RAD ---
HISTORYFecal impactionSTUDYKUBCOMPARISONSeptember 2022FINDINGSSimilar extent and distribution of intestinal gaseous dilatation primarily colon. There is no evidence for developing mass, pneumatosis, abnormal fluid collection or other complication.IMPRESSIONNo change. Persistent intestinal distention consistent with ileus.Electronically signed by: SOFI TESFAYE (Dec 29, 2022 10:24:13)
[2022-12-29] MEDS ORDERED: MELATONIN PO PRN (11:16)
[2022-12-29] MEDS ORDERED: ULTRAM PO PRN (11:16)
--- NOTE | 2022-12-29 11:20 | PCM.PROG ---
Progress Note Progress Note for Day of Date of Exam: 12/29/22 Subjective Subjective: Patient seen at bedside, no acute events overnight. She is currently admitted for fecal impaction and colitis. She also has UTI. She has had BMs all through the night. She states she feels slightly better. She still has some abdominal discomfort. Dr Quintanilla saw the patient this morning, KUB ordered. Labs/imaging reviewed - WBC 12 Hgb 10.6 BUN/Cr 27/1.27 - Urine Cx (-) Plan: follow surgery recommendations. Follow KUB and pending stool studies. Continue hydration. Continue IV Rocephin and Flagyl. Diet as per surgery. Replace electrolytes as needed. Continue home medications. Monitor AM labs/imaging. Past Medical Family Social History Allergies: Allergies Sulfa (Sulfonamide Antibiotics) [SULFA] Allergy (Verified 11/16/22 02:10) Vital Signs and I&O's Vital Signs: Vital Signs Temperature 98.8 F Temperature 97.9 F Pulse Rate [Bilateral Radial] 83 Pulse Rate [Bilateral Radial] 97 Respiratory Rate 18 Respiratory Rate 18 Blood Pressure [Right Arm] 145/65 Blood Pressure [Right Arm] 145/64 O2 Sat by Pulse Oximetry 95 O2 Sat by Pulse Oximetry 95 Intake and Output: Intake & Output 12/26/22 12/27/22 12/28/22 12/29/22 23:59 23:59 23:59 23:59 Intake Total 875 / 875 2604 / 2604 737 / 737 Output Total 100 / 100 Balance 775 / 775 2604 / 2604 737 / 737 Physical Exam Oriented: Person and Place Eyes: Normal Ear: Normal Nose: Normal Cardiovascular: Normal Auscultation: Bowel Sounds: Decreased Tenderness: Diffuse and Other (soft, slightly tympanic and lower tenderness , no rebound .. ) Skin: Decreased Turgur Musculoskeletal: Normal Psychiatric: Normal Mood Description: Calm Affect: Flat Speech Pattern: Clear and Appropriate Laboratory and Diagnostics 12/29/22 04:10 12/29/22 04:10 Labs: 12/27/22 11:45 Urine,Catheterized Urine Culture - Final Laboratory WBC 12.0 X10^3/uL (3.6-10.0) H 12/29/22 04:10 RBC 3.89 X10^6/uL (3.5-5.4) 12/29/22 04:10 Hgb 10.6 g/dL (12.0-16.0) L 12/29/22 04:10 Hct 32.2 % (36.0-47.0) L 12/29/22 04:10 MCV 82.7 fL (80.0-100.0) 12/29/22 04:10 MCH 27.2 pg (27.0-34.0) 12/29/22 04:10 MCHC 32.9 g/dL (33.0-35.0) L 12/29/22 04:10 RDW 16.5 % (11.6-16.5) 12/29/22 04:10 Plt Count 209 X10^3/uL (150.0-450.0) 12/29/22 04:10 MPV 9.2 fL (7.4-11.0) 12/29/22 04:10 Neut % (Auto) 81.2 % (42.0-75.0) H 12/29/22 04:10 Lymph % (Auto) 7.6 % (21.0-51.0) L 12/29/22 04:10 [place] % (Auto) 10.9 % (0.0-13.0) 12/29/22 04:10 Eos % (Auto) 0.1 % (0.9-2.9) L 12/29/22 04:10 Baso % (Auto) 0.2 % (0.2-1.0) 12/29/22 04:10 Neut # (Auto) 9.8 x10^3/uL (2.2-4.8) H 12/29/22 04:10 Lymph # (Auto) 0.9 X10^3/uL (1.3-2.9) L 12/29/22 04:10 [place] # (Auto) 1.3 x10^3/uL (0.3-0.8) H 12/29/22 04:10 Eos # (Auto) 0.0 x10^3/uL (0.0-0.2) 12/29/22 04:10 Baso # (Auto) 0.0 X10^3/uL (0.0-0.1) 12/29/22 04:10 Absolute Nucleated RBC 0.0 /100WBC 12/29/22 04:10 Sodium 142 mmol/L (136-145) 12/29/22 04:10 Corrected Sodium TNP 12/29/22 04:10 Potassium 3.6 mmol/L (3.5-5.1) 12/29/22 04:10 Chloride 109 mmol/L (98-107) H 12/29/22 04:10 Carbon Dioxide 25.8 mmol/L (21-32) 12/29/22 04:10 BUN 27 mg/dL (7-18) H 12/29/22 04:10 Creatinine 1.27 mg/dL (0.55-1.02) H 12/29/22 04:10 Est GFR (MDRD) Af Amer 51 (>60) L 12/29/22 04:10 Est GFR (MDRD) Non-Af 42 (>60) L 12/29/22 04:10 Glucose 87 mg/dL (65-99) 12/29/22 04:10 Calcium 7.6 mg/dL (8.5-10.1) L 12/29/22 04:10 Corrected Calcium 9.1 mg/dL (8.5-10.1) 12/29/22 04:10 Magnesium 2.2 mg/dL (2.0-2.9) 12/29/22 04:10 Total Bilirubin 0.70 mg/dL (0.2-1.0) 12/29/22 04:10 AST 24 Units/L (15-37) 12/29/22 04:10 ALT 13 Units/L (12-78) 12/29/22 04:10 Alkaline Phosphatase 176 Units/L (46-116) H 12/29/22 04:10 Total Protein 5.1 g/dL (6.4-8.2) L 12/29/22 04:10 Albumin 2.1 g/dL (3.4-5.0) L 12/29/22 04:10 Globulin 3.0 g/dL (2.5-4.5) 12/29/22 04:10 Albumin/Globulin Ratio 0.7 Ratio (1.1-2.1) L 12/29/22 04:10 Specimen Type Catherized urine 12/27/22 11:45 Urine Color Patricia (YELLOW) 12/27/22 11:45 Urine Appearance Clear (CLEAR) 12/27/22 11:45 Urine pH 6.0 (5.0 - 8.0) 12/27/22 11:45 Ur Specific [place] 1.020 (1.000-1.030) 12/27/22 11:45 Urine Protein 3+ (NEGATIVE) 12/27/22 11:45 Urine Glucose (UA) 1+ (NEGATIVE) 12/27/22 11:45 Urine Ketones 1+ (NEGATIVE) 12/27/22 11:45 Urine Blood 2+ (NEGATIVE) 12/27/22 11:45 Urine Nitrite Positive (NEGATIVE) 12/27/22 11:45 Urine Bilirubin 2+ (NEGATIVE) 12/27/22 11:45 Urine Urobilinogen 4+ (NORMAL) 12/27/22 11:45 Ur Leukocyte Esterase 2+ (NEGATIVE) 12/27/22 11:45 Urine RBC 3-5 /HPF (0-3) A 12/27/22 11:45 Urine WBC 0-2 /HPF (0-5) 12/27/22 11:45 Ur Squamous Epith Cells Negative /HPF (NEGATIVE) 12/27/22 11:45 Ur Renal Epithelial Cell Rare /HPF (NEGATIVE) 12/27/22 11:45 Urine Bacteria Trace /HPF (NEGATIVE) 12/27/22 11:45 Hyaline Casts Many /LPF (NEGATIVE) 12/27/22 11:45 Urine Mucus Moderate /HPF (NEGATIVE) 12/27/22 11:45 Ur Culture Indicated? Yes/culture set up 12/27/22 11:45 Plan (1) Abdominal pain: Status: Acute Qualifiers: Abdominal location: generalized Qualified Code(s): R10.84 - Generalized abdominal pain (2) Fecal impaction: Status: Acute (3) Colitis: Status: Acute (4) Urinary tract infection: Status: Acute Qualifiers: Hematuria presence: without hematuria Urinary tract infection type: acute cystitis Qualified Code(s): N30.00 - Acute cystitis without hematuria (5) Acute renal insufficiency: Status: Acute (6) Hypokalemia: Status: Acute (7) Hypertension: Status: Acute Qualifiers: Hypertension type: primary hypertension Qualified Code(s): I10 - Essential (primary) hypertension (8) Dementia: Status: Acute Qualifiers: Dementia behavioral or psychological symptom: unspecified whether behavioral, psychotic, or mood disturbance or anxiety Dementia severity: unspecified severity Dementia type: unspecified type Qualified Code(s): F03.90 - Unspecified dementia, unspecified severity, without behavioral disturbance, psychotic disturbance, mood disturbance, and anxiety
[2022-12-29] MEDS ORDERED: TYLENOL 325 MG TAB PO PRN (12:23)
[2022-12-29] MEDS: CYMBALTA PO SCH (13:47)
[2022-12-29] MEDS: NORVASC TAB 5 MG PO SCH (13:48)
[2022-12-29] MEDS: BUSPIRONE 7.5 MG PO SCH ×2 (15:15→20:06)
[2022-12-29 19:37] VITALS: RESP 20
[2022-12-29] MEDS ORDERED: TAPAZOLE ONE (20:03)
[2022-12-29] MEDS: TAPAZOLE PO SCH (20:05)
[2022-12-29] MEDS: SEROquel TAB 25 mg PO SCH (20:05)
[2022-12-29] MEDS: DESYREL PO SCH (20:05)
[2022-12-30] MEDS: NS 1,000 ML IV 1,000 ML IV SCH ×4 (02:22→22:23)
[2022-12-30] MEDS: FLAGYL IV PREMIX 500 MG BAG 500 MG/100 ML BAG IV SCH ×4 (02:22→20:45)
[2022-12-30 05:17] LABS: BASOPHILS % (AUTO) 0.3 % (0.2-1.0); EOSINOPHILS # (AUTO) 0.2 x10^3/uL (0.0-0.2); HEMATOCRIT 31.6 % (36.0-47.0); HEMOGLOBIN 10.5 g/dL (12.0-16.0); LYMPHOCYTES % (AUTO) 11.3 % (21.0-51.0); MEAN CORPUSCULAR HEMOGLOBIN 27.5 pg (27.0-34.0); MEAN CORPUSCULAR HGB CONC 33.2 g/dL (33.0-35.0); MEAN CORPUSCULAR VOLUME 82.9 fL (80.0-100.0); MEAN PLATELET VOLUME 9.6 fL (7.4-11.0); MONOCYTES % (AUTO) 11.1 % (0.0-13.0); NEUTROPHILS # (AUTO) 6.5 x10^3/uL (2.2-4.8); NEUTROPHILS % (AUTO) 75.3 % (42.0-75.0); PLATELET COUNT 216 X10^3/uL (150.0-450.0); RED BLOOD COUNT 3.82 X10^6/uL (3.5-5.4); RED CELL DISTRIBUTION WIDTH 16.4 % (11.6-16.5); WHITE BLOOD COUNT 8.7 X10^3/uL (3.6-10.0)
[2022-12-30 05:36] LABS: ALANINE AMINOTRANSFERASE 8 Units/L (12-78); ALBUMIN 1.9 g/dL (3.4-5.0); ALKALINE PHOSPHATASE 132 Units/L (46-116); ASPARTATE AMINO TRANSFERASE 18 Units/L (15-37); BLOOD UREA NITROGEN 16 mg/dL (7-18); CALCIUM 7.5 mg/dL (8.5-10.1); CARBON DIOXIDE 23.6 mmol/L (21-32); CHLORIDE 107 mmol/L (98-107); COR CA(FOR HYPOALB) 9.2 mg/dL (8.5-10.1); CREATININE 1.05 mg/dL (0.55-1.02); GLUCOSE 87 mg/dL (65-99); POTASSIUM 3.1 mmol/L (3.5-5.1); SODIUM 139 mmol/L (136-145); TOTAL PROTEIN 4.9 g/dL (6.4-8.2); eGFR NON BLACK RACES 53 (>60)
[2022-12-30] MEDS ORDERED: CONSULT PHARMACY - POTASSIUM & MAGNESIUM XX SCH ×2 (06:00→12:00)
[2022-12-30] MEDS: K-DUR TAB 20 MEQ PO SCH ×2 (09:03→10:14)
[2022-12-30] MEDS: MAG-OX TAB PO SCH ×2 (09:03→10:14)
[2022-12-30] MEDS: ZESTRIL TAB 10 MG PO SCH (09:03)
[2022-12-30] MEDS: BUSPAR PO SCH ×2 (09:03→20:49)
[2022-12-30] MEDS: CYMBALTA PO SCH (09:03)
[2022-12-30] MEDS: NORVASC TAB 5 MG PO SCH (09:03)
[2022-12-30] MEDS: ROCEPHIN VIAL 1 GRAM 1 G in NS 100 ML IV 100 ML IV SCH (09:03)
--- NOTE | 2022-12-30 11:22 | PCM.PROG ---
Progress Note Progress Note for Day of Date of Exam: 12/30/22 Subjective Subjective: Patient seen at bedside, no acute events overnight. She feels a lot better today. She is working with PT/OT. She states her abdominal pain is better. She continues to have BMs. She has been tolerating PO intake. Dr Quintanilla plans to do colonoscopy tomorrow. KUB yesterday showed ileus. Labs/imaging reviewed - K:3.1 Mg 1.7 - Urine Cx (-) Plan: follow surgery recommendations. Continue hydration. Continue IV Rocephin and Flagyl. Diet as per surgery. Replace electrolytes as needed. Continue home medications. Colonoscopy tomorrow. Monitor AM labs/imaging. Past Medical Family Social History Allergies: Allergies Sulfa (Sulfonamide Antibiotics) [SULFA] Allergy (Verified 11/16/22 02:10) Vital Signs and I&O's Vital Signs: Vital Signs Temperature 97.7 F Temperature 97.7 F Pulse Rate [Bilateral Radial] 97 Pulse Rate [Bilateral Radial] 84 Respiratory Rate 20 Respiratory Rate 20 Blood Pressure [Right Arm] 125/76 Blood Pressure [Right Arm] 129/75 O2 Sat by Pulse Oximetry 96 O2 Sat by Pulse Oximetry 95 Intake and Output: Intake & Output 12/27/22 12/28/22 12/29/22 12/30/22 23:59 23:59 23:59 23:59 Intake Total 875 / 875 2604 / 2604 1697 / 1797 911 / 911 Output Total 100 / 100 Balance 775 / 775 2604 / 2604 1697 / 1797 911 / 911 Physical Exam Oriented: Person and Place Eyes: Normal Ear: Normal Nose: Normal Cardiovascular: Normal Auscultation: Bowel Sounds: Decreased Tenderness: Diffuse and Other (soft, lower tenderness , no rebound .. ) Skin: Decreased Turgur Musculoskeletal: Normal Psychiatric: Normal Mood Description: Calm Affect: Flat Speech Pattern: Clear and Appropriate Laboratory and Diagnostics 12/30/22 04:25 12/30/22 04:25 Labs: 12/27/22 11:45 Urine,Catheterized Urine Culture - Final Laboratory WBC 8.7 X10^3/uL (3.6-10.0) 12/30/22 04:25 RBC 3.82 X10^6/uL (3.5-5.4) 12/30/22 04:25 Hgb 10.5 g/dL (12.0-16.0) L 12/30/22 04:25 Hct 31.6 % (36.0-47.0) L 12/30/22 04:25 MCV 82.9 fL (80.0-100.0) 12/30/22 04:25 MCH 27.5 pg (27.0-34.0) 12/30/22 04:25 MCHC 33.2 g/dL (33.0-35.0) 12/30/22 04:25 RDW 16.4 % (11.6-16.5) 12/30/22 04:25 Plt Count 216 X10^3/uL (150.0-450.0) 12/30/22 04:25 MPV 9.6 fL (7.4-11.0) 12/30/22 04:25 Neut % (Auto) 75.3 % (42.0-75.0) H 12/30/22 04:25 Lymph % (Auto) 11.3 % (21.0-51.0) L 12/30/22 04:25 [place] % (Auto) 11.1 % (0.0-13.0) 12/30/22 04:25 Eos % (Auto) 2.0 % (0.9-2.9) 12/30/22 04:25 Baso % (Auto) 0.3 % (0.2-1.0) 12/30/22 04:25 Neut # (Auto) 6.5 x10^3/uL (2.2-4.8) H 12/30/22 04:25 Lymph # (Auto) 1.0 X10^3/uL (1.3-2.9) L 12/30/22 04:25 [place] # (Auto) 1.0 x10^3/uL (0.3-0.8) H 12/30/22 04:25 Eos # (Auto) 0.2 x10^3/uL (0.0-0.2) 12/30/22 04:25 Baso # (Auto) 0.0 X10^3/uL (0.0-0.1) 12/30/22 04:25 Absolute Nucleated RBC 0.0 /100WBC 12/30/22 04:25 Sodium 139 mmol/L (136-145) 12/30/22 04:25 Corrected Sodium TNP 12/30/22 04:25 Potassium 3.1 mmol/L (3.5-5.1) L 12/30/22 04:25 Chloride 107 mmol/L (98-107) 12/30/22 04:25 Carbon Dioxide 23.6 mmol/L (21-32) 12/30/22 04:25 BUN 16 mg/dL (7-18) 12/30/22 04:25 Creatinine 1.05 mg/dL (0.55-1.02) H 12/30/22 04:25 Est GFR (MDRD) Af Amer > 60 (>60) 12/30/22 04:25 Est GFR (MDRD) Non-Af 53 (>60) L 12/30/22 04:25 Glucose 87 mg/dL (65-99) 12/30/22 04:25 Calcium 7.5 mg/dL (8.5-10.1) L 12/30/22 04:25 Corrected Calcium 9.2 mg/dL (8.5-10.1) 12/30/22 04:25 Magnesium 1.7 mg/dL (2.0-2.9) L 12/30/22 04:25 Total Bilirubin 0.60 mg/dL (0.2-1.0) 12/30/22 04:25 AST 18 Units/L (15-37) 12/30/22 04:25 ALT 8 Units/L (12-78) L 12/30/22 04:25 Alkaline Phosphatase 132 Units/L (46-116) H 12/30/22 04:25 Total Protein 4.9 g/dL (6.4-8.2) L 12/30/22 04:25 Albumin 1.9 g/dL (3.4-5.0) L 12/30/22 04:25 Globulin 3.0 g/dL (2.5-4.5) 12/30/22 04:25 Albumin/Globulin Ratio 0.6 Ratio (1.1-2.1) L 12/30/22 04:25 Specimen Type Catherized urine 12/27/22 11:45 Urine Color Patricia (YELLOW) 12/27/22 11:45 Urine Appearance Clear (CLEAR) 12/27/22 11:45 Urine pH 6.0 (5.0 - 8.0) 12/27/22 11:45 Ur Specific [place] 1.020 (1.000-1.030) 12/27/22 11:45 Urine Protein 3+ (NEGATIVE) 12/27/22 11:45 Urine Glucose (UA) 1+ (NEGATIVE) 12/27/22 11:45 Urine Ketones 1+ (NEGATIVE) 12/27/22 11:45 Urine Blood 2+ (NEGATIVE) 12/27/22 11:45 Urine Nitrite Positive (NEGATIVE) 12/27/22 11:45 Urine Bilirubin 2+ (NEGATIVE) 12/27/22 11:45 Urine Urobilinogen 4+ (NORMAL) 12/27/22 11:45 Ur Leukocyte Esterase 2+ (NEGATIVE) 12/27/22 11:45 Urine RBC 3-5 /HPF (0-3) A 12/27/22 11:45 Urine WBC 0-2 /HPF (0-5) 12/27/22 11:45 Ur Squamous Epith Cells Negative /HPF (NEGATIVE) 12/27/22 11:45 Ur Renal Epithelial Cell Rare /HPF (NEGATIVE) 12/27/22 11:45 Urine Bacteria Trace /HPF (NEGATIVE) 12/27/22 11:45 Hyaline Casts Many /LPF (NEGATIVE) 12/27/22 11:45 Urine Mucus Moderate /HPF (NEGATIVE) 12/27/22 11:45 Ur Culture Indicated? Yes/culture set up 12/27/22 11:45 Stl C. diff Tox B Gene Negative (NEGATIVE) 12/29/22 13:35 Stl C. diff [id number] Presumptive negative (NEGATIVE) 12/29/22 13:35 Plan (1) Abdominal pain: Status: Acute Qualifiers: Abdominal location: generalized Qualified Code(s): R10.84 - Generalized abdominal pain (2) Fecal impaction: Status: Acute (3) Colitis: Status: Acute (4) Hypomagnesemia: Status: Acute (5) Hypokalemia: Status: Acute (6) Urinary tract infection: Status: Acute Qualifiers: Hematuria presence: without hematuria Urinary tract infection type: acute cystitis Qualified Code(s): N30.00 - Acute cystitis without hematuria (7) Acute renal insufficiency: Status: Acute (8) Hypertension: Status: Acute Qualifiers: Hypertension type: primary hypertension Qualified Code(s): I10 - Essential (primary) hypertension (9) Dementia: Status: Acute Qualifiers: Dementia behavioral or psychological symptom: unspecified whether b ehavioral, psychotic, or mood disturbance or anxiety Dementia severity: un specified severity Dementia type: unspecified type Qualified Code(s): F03.90 - Unspecified dementia, unspecified severity, without behavioral disturbance, psychotic disturbance, mood disturbance, and anxiety
[2022-12-30] MEDS ORDERED: GOLYTELY or GAVILYTE or Equivalent PO SCH (16:00)
[2022-12-30] MEDS ORDERED: TAPAZOLE ONE (20:40)
[2022-12-30] MEDS: DESYREL PO SCH (20:46)
[2022-12-30] MEDS: TAPAZOLE PO SCH (20:46)
[2022-12-30] MEDS: SEROquel TAB 25 mg PO SCH (20:49)
[2022-12-31] MEDS: NS 1,000 ML IV 1,000 ML IV SCH ×2 (02:00→05:42)
[2022-12-31] MEDS: FLAGYL IV PREMIX 500 MG BAG 500 MG/100 ML BAG IV SCH ×2 (03:40→09:05)
[2022-12-31 04:55] LABS: BASOPHILS % (AUTO) 0.2 % (0.2-1.0); EOSINOPHILS # (AUTO) 0.3 x10^3/uL (0.0-0.2); EOSINOPHILS % (AUTO) 3.1 % (0.9-2.9); HEMATOCRIT 32.1 % (36.0-47.0); HEMOGLOBIN 10.7 g/dL (12.0-16.0); LYMPHOCYTES # (AUTO) 1.2 X10^3/uL (1.3-2.9); LYMPHOCYTES % (AUTO) 13.5 % (21.0-51.0); MEAN CORPUSCULAR HEMOGLOBIN 27.6 pg (27.0-34.0); MEAN CORPUSCULAR HGB CONC 33.4 g/dL (33.0-35.0); MEAN CORPUSCULAR VOLUME 82.6 fL (80.0-100.0); MEAN PLATELET VOLUME 9.4 fL (7.4-11.0); MONOCYTES # (AUTO) 1.2 x10^3/uL (0.3-0.8); MONOCYTES % (AUTO) 13.7 % (0.0-13.0); NEUTROPHILS # (AUTO) 6.1 x10^3/uL (2.2-4.8); NEUTROPHILS % (AUTO) 69.5 % (42.0-75.0); PLATELET COUNT 220 X10^3/uL (150.0-450.0); RED BLOOD COUNT 3.89 X10^6/uL (3.5-5.4); RED CELL DISTRIBUTION WIDTH 16.3 % (11.6-16.5); WHITE BLOOD COUNT 8.8 X10^3/uL (3.6-10.0)
[2022-12-31 05:09] LABS: ALANINE AMINOTRANSFERASE 6 Units/L (12-78); ALKALINE PHOSPHATASE 105 Units/L (46-116); ASPARTATE AMINO TRANSFERASE 15 Units/L (15-37); BLOOD UREA NITROGEN 8 mg/dL (7-18); CALCIUM 7.3 mg/dL (8.5-10.1); CARBON DIOXIDE 25.8 mmol/L (21-32); CHLORIDE 108 mmol/L (98-107); COR CA(FOR HYPOALB) 8.9 mg/dL (8.5-10.1); CREATININE 0.87 mg/dL (0.55-1.02); GLUCOSE 85 mg/dL (65-99); MAGNESIUM 1.6 mg/dL (2.0-2.9); SODIUM 140 mmol/L (136-145); TOTAL PROTEIN 4.9 g/dL (6.4-8.2); eGFR NON BLACK RACES > 60 (>60)
[2022-12-31] MEDS ORDERED: CONSULT PHARMACY - POTASSIUM & MAGNESIUM XX SCH (07:00)
[2022-12-31] MEDS ORDERED: MAG-OX TAB PO SCH (09:00)
[2022-12-31] MEDS: NORVASC TAB 5 MG PO SCH (09:07)
[2022-12-31] MEDS: ZESTRIL TAB 10 MG PO SCH (09:07)
[2022-12-31] MEDS: BUSPAR PO SCH (09:07)
[2022-12-31] MEDS: K-DUR TAB 20 MEQ PO SCH ×2 (09:07→12:15)
[2022-12-31] MEDS: CYMBALTA PO SCH (09:07)
[2022-12-31] MEDS: ROCEPHIN VIAL 1 GRAM 1 G in NS 100 ML IV 100 ML IV SCH (10:51)
[2022-12-31 12:05] VITALS: BP 152/70; PULSE 85; TEMP 98.1; O2SAT 96
[2022-12-31] MEDS ORDERED: ROBITUSSIN DM PO SCH (13:00)
[2022-12-31] MEDS ORDERED: MYLICON TAB 80 MG CHEW PO SCH (14:00)
== END 2022-12-31 13:45 | DRG 392 ==
LOC: ER 10:31 → MED/SURG 14:01
PROVIDERS: ADMIT Internal Medicine; ATTEND Internal Medicine
DX: F41.8 Other specified anxiety disorders; Z66 Do not resuscitate; K56.41 Fecal impaction; N30.00 Acute cystitis without hematuria; N28.9 Disorder of kidney and ureter, unspecified; E83.42 Hypomagnesemia; R10.84 Generalized abdominal pain; I10 Essential (primary) hypertension; K52.89 Other specified noninfective gastroenteritis and colitis; E87.6 Hypokalemia; F03.90 Unspecified dementia, unspecified severity, without behavioral disturbance, psychotic disturbance, mood disturbance, and anxiety